=== PATIENT | female | born 1990 | race Caucasian/White ===

== ENCOUNTER 2017-01-26 15:39 | Emergency (ER) | payer MEDICAID ==
[~2017-01-26] VITALS: Ht 157.5 cm; Wt 68.9 kg
[~2017-01-26 15:39] MED LIST: ACIDOPHILUS1 CTB PO; BACTRIM DS 8001 TA1 PO; BACTRIM DS 8001 TAB PO; BACTROBAN2% TP; BENADRYL 25MG C25 MG PO; BENTYL20 MG PO; BENZONATATE100 MG PO; CIPRO 500MG TA500 MG PO; CLARITIN 10MG T10 MG PO; CLINDAMYCIN HC300 MG PO; MEDROL 4MG. DOSE4 MG PO; MONTELUKAST SOD10 MG PO; MOTRIN 600MG.600 MG PO; MOTRIN600 M1 PO; NOMEDS XX; PHENERGAN W/CO473 ML PO; PREDNISONE 10MG10 MG PO; PREDNISONE 20MG20 MG PO; SPRINTEC 35 MCG1 TAB PO; SULFAMETHOXAZOL1 TA6 PO; TESSALON PERLE100 MG PO; TYLENOL ES500 M1 PO; ZITHROMAX 250M250 MG PO; ZITHROMAX Z PA250 MG PO; ZITHROMAX Z-PA250 M1 PO; ZOFRAN4 MG PO; ZYRTEC 10MG TAB10 MG PO; ZYRTEC10 M2 PO
[2017-01-26] MEDS ORDERED: SUDAFED 12HR120 MG PO (16:10)
[2017-01-26] MEDS ORDERED: LEVAQUIN500 MG PO (16:10)
[2017-01-26] MEDS ORDERED: MEDROL 4MG. DOSE4 MG PO (16:10)
--- NOTE | 2017-01-26 16:11 | Urgent Treatment Center Report ---
History of Present Issue Date/Time Seen by Provider 01/26/17 1427 Visit Reason Pt arrived:Walked Presenting Problem:PT STATES HEAD CONGESTION, SINUS PAIN/PRESSURE, AND PRODUCTIVE COUGH WITH YELLOW SPUTUM. STATES TAKING A ZPACK WITH NO IMPROVEMENT Location if Accident: Onset of symptoms date/time:/ or onset unknown for:MEDICAL HX UNKNOWN Have you (or family members/close friends) recently traveled outside the [place]? N If Yes, where/when: Have you had exposure to infectious disease within the past month? TB? Other? Specify: Source patient, RN notes reviewed, family Exam Limitations no limitations Comment 10 day history of sinus pain and pressure, bilateral ear pain, sore throat and cough. Has taken ZPack without relief. States has had fever. No vomiting or diarrhea. ALLERGIES Coded Allergies: Penicillins (09/28/15) Pertussis Vaccines (09/28/15) amoxicillin (09/28/15) cefpodoxime (09/28/15) clavulanic acid (09/28/15) erythromycin base (09/28/15) guaifenesin (09/28/15) Home Medications Reported Medications Montelukast Sodium 10 MG PO QHS #30 NORGESTIMATE-ETHINYL ESTRADIOL (Sprintec 28 Day Tablet) 1 TAB PO QHS #28 History Medical History General CAD? No Angina: No [place]: No Hypertension? Yes Hyperlipidemia? No CHF? No DVT? No PE? No COPD? No Asthma? Yes Anemia? No GERD? No Gastric ulcers? No GI Bleed? No Hernia? No Thyroid Problems? No Hypothyroidism? No CVA? No Seizures? Yes Diabetes? No Insulin Dependent: No Insulin Pump: No Home FSBS? No Renal Insuffiency? No UTI? No Stones? No BPH? No GB Disease: Yes Nephritic Syndrome? No Asplenia? No Hepatitis? No Sickle Cell Disease? No Arthritis? No Migraines? No Cataracts? No Glaucoma? No MRSA? Yes HIV? No TB? No Anxiety? No Depression? No Cancer? No More? 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 Physical Exam Vital Signs Vital Signs Date Time Temp Pulse Resp B/P Pulse O2 O2 Flow FiO2 Ox Delivery Rate 01/26 1600 98.2 98 20 135/97 98 General Appearance normal appearance, no apparent distress Ear, Nose, Throat sinus pain/drainage, pharyngeal erythema Respiratory Status No: respiratory distress, trachea midline, chest symmetrical. Lung Sounds bilateral: normal breath sounds, lungs clear. Cardiovascular normal exam, regular rate/rhythm, no peripheral edema, no gallop, no JVD, no murmur, no rub Extremities non-tender, normal range of motion, normal inspection, normal capillary refill Neurologic alert, normal exam, oriented x 3 Mental status normal mood/affect Medical Decision Making LABS/Meds/Orders Pt receiving controlled substance in ED? No Departure Departure Time of Disposition 1608 Disposition DC Home or Self Care(routine) Clinical Impression Primary Impression: Sinusitis Qualifiers: Sinusitis location: maxillary Chronicity: acute Recurrence: non- recurrent Qualified Code: J01.00 - Acute maxillary sinusitis, unspecified Condition STABLE Referrals HERNANDO APONTE (Family) Patient Instructions DI for Sinusitis Additional Instructions rest, fluids Discharge Counseling Counseled pt/family regarding diagnosis, medications/RX, home care, follow up needs Prescriptions Current Visit Scripts Levofloxacin (Levaquin 500MG) 500 MG PO DAILY #10 TAB Pseudoephedrine Hcl (Sudafed 12 Hour) 120 MG PO BIDP PRN congestion #20 TER Methylprednisolone (Medrol Dose Greg) 4 MG PO UD #1 GREG TAKE DIRECTED ON PACKAGING at 1610
--- NOTE | 2017-01-26 16:11 | Urgent Treatment Center Report ---
History of Present Issue Date/Time Seen by Provider 01/26/17 1857 Visit Reason Pt arrived:Walked Presenting Problem:PT STATES HEAD CONGESTION, SINUS PAIN/PRESSURE, AND PRODUCTIVE COUGH WITH YELLOW SPUTUM. STATES TAKING A ZPACK WITH NO IMPROVEMENT Location if Accident: Onset of symptoms date/time:/ or onset unknown for:MEDICAL HX UNKNOWN Have you (or family members/close friends) recently traveled outside the [place]? N If Yes, where/when: Have you had exposure to infectious disease within the past month? TB? Other? Specify: Source patient, RN notes reviewed, family Exam Limitations no limitations Comment 10 day history of sinus pain and pressure, bilateral ear pain, sore throat and cough. Has taken ZPack without relief. States has had fever. No vomiting or diarrhea. ALLERGIES Coded Allergies: Penicillins (09/28/15) Pertussis Vaccines (09/28/15) amoxicillin (09/28/15) cefpodoxime (09/28/15) clavulanic acid (09/28/15) erythromycin base (09/28/15) guaifenesin (09/28/15) Home Medications Reported Medications Montelukast Sodium 10 MG PO QHS #30 NORGESTIMATE-ETHINYL ESTRADIOL (Sprintec 28 Day Tablet) 1 TAB PO QHS #28 History Medical History General CAD? No Angina: No [place]: No Hypertension? Yes Hyperlipidemia? No CHF? No DVT? No PE? No COPD? No Asthma? Yes Anemia? No GERD? No Gastric ulcers? No GI Bleed? No Hernia? No Thyroid Problems? No Hypothyroidism? No CVA? No Seizures? Yes Diabetes? No Insulin Dependent: No Insulin Pump: No Home FSBS? No Renal Insuffiency? No UTI? No Stones? No BPH? No GB Disease: Yes Nephritic Syndrome? No Asplenia? No Hepatitis? No Sickle Cell Disease? No Arthritis? No Migraines? No Cataracts? No Glaucoma? No MRSA? Yes HIV? No TB? No Anxiety? No Depression? No Cancer? No More? 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 Physical Exam Vital Signs Vital Signs Date Time Temp Pulse Resp B/P Pulse O2 O2 Flow FiO2 Ox Delivery Rate 01/26 1600 98.2 98 20 135/97 98 General Appearance normal appearance, no apparent distress Ear, Nose, Throat sinus pain/drainage, pharyngeal erythema Respiratory Status No: respiratory distress, trachea midline, chest symmetrical. Lung Sounds bilateral: normal breath sounds, lungs clear. Cardiovascular normal exam, regular rate/rhythm, no peripheral edema, no gallop, no JVD, no murmur, no rub Extremities non-tender, normal range of motion, normal inspection, normal capillary refill Neurologic alert, normal exam, oriented x 3 Mental status normal mood/affect Medical Decision Making LABS/Meds/Orders Pt receiving controlled substance in ED? No Departure Departure Time of Disposition 1608 Disposition DC Home or Self Care(routine) Clinical Impression Primary Impression: Sinusitis Qualifiers: Sinusitis location: maxillary Chronicity: acute Recurrence: non- recurrent Qualified Code: J01.00 - Acute maxillary sinusitis, unspecified Condition STABLE Referrals HERNANDO APONTE (Family) Patient Instructions DI for Sinusitis Additional Instructions rest, fluids Discharge Counseling Counseled pt/family regarding diagnosis, medications/RX, home care, follow up needs Prescriptions Current Visit Scripts Levofloxacin (Levaquin 500MG) 500 MG PO DAILY #10 TAB Pseudoephedrine Hcl (Sudafed 12 Hour) 120 MG PO BIDP PRN congestion #20 TER Methylprednisolone (Medrol Dose Greg) 4 MG PO UD #1 GREG TAKE DIRECTED ON PACKAGING at 1610
[2017-01-26 16:22] VITALS: BP 135/97
== END 2017-01-26 16:22 | disposition home or self-care (01) ==
LOC: UTC 15:39
DX: J01.00 Acute maxillary sinusitis, unspecified (principal); I10 Essential (primary) hypertension; Z79.3 Long term (current) use of hormonal contraceptives; Z79.899 Other long term (current) drug therapy

== ENCOUNTER 2017-02-19 13:28 | Emergency (ER) | payer MEDICAID ==
[~2017-02-19] VITALS: Ht 157.5 cm; Wt 77.1 kg
[~2017-02-19 13:28] MED LIST changes: +LEVAQUIN500 MG PO; +SUDAFED 12HR120 MG PO
--- NOTE | 2017-02-19 13:50 | Emergency Room Report ---
History of Present Illness Time Seen by MD Virk Presenting Problem in Triage Pt arrived:Walked Presenting Problem:PT C/O ABD PAIN GOING ACROSS HER STOMACH IN THE UMBILICAL REGION. PT ADVISES THAT IT BEGAN APPROX 30 MINUTES AGO AFTER GOING TO THE BATHROOM AT WORK. 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 N Clinical Suspician of Infection? N Mental Status: 1 - Regular (Normal Baseline) Sepsis Risk:Low Sepsis Risk Have you (or family members/close friends) recently traveled outside the [place]? N If Yes, where/when: Have you had exposure to infectious disease within the past month? N TB? Other? Specify: Comment The patient complains of abdominal pain in the LEFT periumbilical area. She says she has had a dull ache there since awakening at about 8 AM, but the pain became suddenly sharp and severe when she urinated this afternoon. Pain radiates around to the LEFT side of her back. 4 episodes of vomiting. Small amount of diarrhea. Temperature of 99 degrees. Currently on her menses. ALLERGIES Coded Allergies: Penicillins (09/28/15) Pertussis Vaccines (09/28/15) amoxicillin (09/28/15) cefpodoxime (09/28/15) clavulanic acid (09/28/15) erythromycin base (09/28/15) guaifenesin (09/28/15) Home Medications Active Scripts Levofloxacin (Levaquin 500MG) 500 MG PO DAILY #10 TAB Prov: 01/26/17 Pseudoephedrine Hcl (Sudafed 12 Hour) 120 MG PO BIDP PRN congestion #20 TER Prov: 01/26/17 Methylprednisolone (Medrol Dose Yohan) 4 MG PO UD #1 YOHAN Prov: 01/26/17 Reported Medications Montelukast Sodium 10 MG PO QHS #30 NORGESTIMATE-ETHINYL ESTRADIOL (Sprintec 28 Day Tablet) 1 TAB PO QHS #28 History Medical History General CAD? No Angina: No [place]: No Hypertension? Yes Hyperlipidemia? No CHF? No DVT? No PE? No COPD? No Asthma? Yes Anemia? No GERD? No Gastric ulcers? No GI Bleed? No Hernia? No Thyroid Problems? No Hypothyroidism? No CVA? No Seizures? Yes Diabetes? No Insulin Dependent: No Insulin Pump: No Home FSBS? No Renal Insuffiency? No End Stage Renal Disease? No UTI? No Stones? No BPH? No GB Disease: Yes Nephritic Syndrome? No Asplenia? No Hepatitis? No Sickle Cell Disease? No Arthritis? No Migraines? No Cataracts? No Glaucoma? No MRSA? Yes HIV? No TB? No Anxiety? No Depression? No Cancer? No More? 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 Family History Family Hx Diabetes Yes CAD No Hypertension Yes Hyperlipidemia Yes Cancer Yes TB No Social History Smoking Hx Smoker: Never Smoker Tobacco: No Packs/day N/A Alcohol Alcohol: No Review of Systems All Other Systems Reviewed and Negative Constitutional fever Gastrointestinal abdominal pain, diarrhea, nausea, vomiting Musculoskeletal back pain Physical Exam Vital Signs Vital Signs Date Time Temp Pulse Resp B/P Pulse O2 O2 Flow FiO2 Ox Delivery Rate 02/19 1502 97.9 74 16 140/70 99 02/19 1500 16 02/19 1449 16 02/19 1413 82 18 146/88 99 02/19 1331 97.9 84 18 157/93 99 General Appearance no apparent distress Eye Exam - bilateral eye normal exam, bilateral eye PERRL, bilateral eye EOMI Ear, Nose, Throat hearing grossly normal, normal ENT inspection Neck normal inspection, non-tender, supple, full range of motion Respiratory Status Yes: trachea midline, chest symmetrical, non tender chest. No: respiratory distress. Lung Sounds bilateral: normal breath sounds, lungs clear. 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 Yes Ernesto was queried for this patient? No Reason not queried - emergent pt cond=no time Results/Orders Laboratory Tests 02/19/17 1340: Sodium 140, Potassium 3.4 L, Chloride 107, Carbon Dioxide 23, BUN 7, Creatinine 1.1 H, Estimated Creat Clear 96, Estimated GFR (MDRD) 61, Glucose 108 H, Calcium 8.9, Total Bilirubin 0.3, AST 15, ALT 30, Alkaline Phosphatase 78, Total Protein 7.8, Albumin 3.8, Globulin 4.0 H, Albumin/Globulin Ratio 1.0 L, Amylase 43, Lipase 159, WBC 8.3, RBC 4.60, Hgb 13.5, Hct 40.0, MCV 87.0, RDW 12.5, Plt Count 328, MPV 7.8, Gran % 58.4, Gran # 4.9, Lymphocytes % 35.3, Monocytes % 3.5, Eosinophils % 2.4, Basophils % 0.3, Lymphocytes # 3.0, Monocytes # 0.3, Eosinophils # 0.2, Basophils # 0.0, PUBS MCHC 33.6, MCH 29.3, Urine Color ZEE, Urine Appearance SL CLOUDY, Urine pH 5.5, Ur Specific [place] >= 1.030, Urine Protein 2+ H, Urine Ketones NEGATIVE, Urine Blood 3+ H, Urine Nitrate NEGATIVE, Urine Bilirubin 1+ H, Urine Urobilinogen 0.2, Ur Leukocyte Esterase NEGATIVE, Urine RBC 5-10, Urine WBC 5-10, Ur Squamous Epith Cells 5-10, Amorphous Sediment 1+, Urine Bacteria 1+, Urine Glucose NEGATIVE Current Medication Orders Sig/Maryann Start time Last Medication Dose Route Stop Time Status Admin Morphine Sulfate 4 MG ONCE ONE 02/19 1500 DC 02/19 IV 02/19 1501 1500 Ketorolac 30 MG ONCE ONE 02/19 1415 DC 02/19 Tromethamine IV 02/19 1416 1449 Ondansetron HCl 4 MG ONCE ONE 02/19 1345 DC 02/19 IV 02/19 1346 1353 Sodium Chloride 10 ML PRN PRN 02/19 1345 DCD IV 02/20 1336 Sodium Chloride 1,000 ML .Q1H1M 02/19 1345 DC 02/19 IV 02/19 1445 1352 Sodium Chloride 10 ML PRN PRN 02/19 1345 DCD IV 02/20 1337 Orders Procedure Date/time Status DIET-NOTHING BY MOUTH 02/19 D Active GEN NSG/PT REQ (NOT FOR MEDS!) 02/19 1454 Active CULTURE, URINE 02/[address] ABD/PELVIS REQ 02/19 1337 Complete IV SALINE LOCK 02/19 1337 Active URINALYSIS/COMPLETE 02/19 1337 Complete URINE 02/19 1337 Complete LIPASE 02/19 1337 Complete CBC WITH AUTO DIFF 02/19 1337 Complete CHEM 12 PROFILE 02/19 1337 Complete AMYLASE 02/19 1337 Complete XRAY/CT/US XRAY/CT/US CT abdomen, pelvis Comment CT scan interpreted by radiologist: Tiny distal LEFT ureteral calculus with mild hydronephrosis Departure Departure Disposition DC Home or Self Care(routine) Clinical Impression Primary Impression: Left ureteral calculus Condition STABLE Referrals John MARTIN,Lester Vaughan (PCP/Family) Patient Instructions DI for Kidney Stones Additional Instructions Additional instructions for KIDNEY STONE (URETERAL CALCULUS): Strain your urine and save any stones you catch. See your physician as soon as possible for further evaluation. Return immediately if you develop a fever or have uncontrollable vomiting or uncontrollable pain. Prescriptions Current Visit Scripts TAMSULOSIN HCL (Flomax) 0.4 MG PO QHS #10 CAP Ondansetron (Zofran 4MG Odt) 4 MG PO Q8HP PRN NAUSEA AND VOMITING #10 ODT OXYCODONE HCL/ACETAMINOPHEN (Percocet 5-325 MG Tablet) 1 TAB PO Q6HP PRN pain #10 TAB Ibuprofen (Ibuprofen 800MG) 800 MG PO Q8HP PRN pain #15 TAB ED Critical Care Critical Care No at 1510
[2017-02-19 13:54] LABS: HEMOGLOBIN 13.5 g/dL (12.2-16.2); LYMPH % 35.3 % (10-50.0)
[2017-02-19 14:07] LABS: URINE BLOOD 3+ (NEG)
[2017-02-19 14:12] LABS: URINE BILIRUBIN - DIPSTICK 1+ (NEG)
--- NOTE | 2017-02-19 14:46 | RADIOLOGY REPORT PS360 ---
CT ABD PELVIS W/O CONTRAST COMPARISON: CT scan abdomen pelvis 09/06/2014 HISTORY: , Pain left lower quadrant, nausea and vomiting TECHNIQUE: Multiaxial scans obtained from hemidiaphragms the pelvic floor and were performed without IV or oral contrast. Sagittal coronal reformats were evaluated as well. FINDINGS: The lower lung meade are clear. Liver spleen stomach and pancreas appear grossly normal. There has been a previous cholecystectomy. The adrenal glands are normal. The kidneys are normal size. There couple tiny nonobstructing calculi right kidney there are no calculi left kidney however there is moderate hydronephrosis and hydroureter down to the lower pelvis and there is a tiny 1 mm or less calculus in the distal left ureter. The uterus is normal in size and in the midline. The urinary bladder is partially decompressed. There is no free fluid in the pelvis. The small bowel is normal. The appendix is normal and retrocecal in location. There are scattered stool throughout the colon. IMPRESSION: Tiny distal ureteral calculus causing mild obstructive uropathy left kidney, other nonacute findings as described
[2017-02-19] MEDS ORDERED: ZOFRAN ODT4 MG PO (14:55)
[2017-02-19] MEDS ORDERED: IBUPROFEN800 MG PO (14:55)
[2017-02-19] MEDS ORDERED: FLOMAX0.4 MG PO (14:55)
[2017-02-19] MEDS ORDERED: PERCOCET1 TAB PO (14:55)
[2017-02-19 15:02] VITALS: BP 140/70
[2017-02-27] MEDS ORDERED: BACTRIM DS 8001 TA1 PO (17:35)
[2017-02-27] MEDS ORDERED: PYRIDIUM100 M2 PO (17:35)
== END 2017-02-19 15:04 | disposition home or self-care (01) ==
LOC: ER 13:28
PROVIDERS: Emergency Medicine
DX: N13.2 Hydronephrosis with renal and ureteral calculous obstruction (principal); J45.909 Unspecified asthma, uncomplicated; Z88.0 Allergy status to penicillin; Z88.8 Allergy status to other drugs, medicaments and biological substances
CPT/HCPCS: J2405

== ENCOUNTER → 2017-02-27 | Emergency (ER) | payer MEDICAID ==
[~2017-02-27] VITALS: Ht 157.5 cm; Wt 78.5 kg
[~2017-02-27] MED LIST changes: +FLOMAX0.4 MG PO; +IBUPROFEN800 MG PO; +PERCOCET1 TAB PO; +PYRIDIUM100 M2 PO; +ZOFRAN ODT4 MG PO
--- NOTE | 2017-02-27 17:06 | Urgent Treatment Center Report ---
History of Present Issue Date/Time Seen by Provider 02/27/17 1705 Visit Reason Pt arrived:Walked Presenting Problem:PT C/O OF LOWER BACK/ ABDOMINAL PAIN. WAS SEEN IN THE ER ON FRIDAY AND WAS TOLD SHE HAD A SMALL KIDNEY STONE ON THE LEFT. Location if Accident: Onset of symptoms date/time:/ or onset unknown for:MEDICAL HX UNKNOWN Have you (or family members/close friends) recently traveled outside the [place]? N If Yes, where/when: Have you had exposure to infectious disease within the past month? TB? Other? Specify: Patient state that she was recently diagnosed with small kidney stone State that she was sent home and told that she could pass it and given medication. State that has been having pain and burning with urination State that she feels pain in her back and lower abdomen along with frequency and urgency State that she was told that she should be able to pass it easily ALLERGIES Coded Allergies: Penicillins (09/28/15) Pertussis Vaccines (09/28/15) amoxicillin (09/28/15) cefpodoxime (09/28/15) clavulanic acid (09/28/15) erythromycin base (09/28/15) guaifenesin (09/28/15) Home Medications Active Scripts TAMSULOSIN HCL (Flomax) 0.4 MG PO QHS #10 CAP Prov: 02/19/17 Ondansetron (Zofran 4MG Odt) 4 MG PO Q8HP PRN NAUSEA AND VOMITING #10 ODT Prov: 02/19/17 OXYCODONE HCL/ACETAMINOPHEN (Percocet 5-325 MG Tablet) 1 TAB PO Q6HP PRN pain #10 TAB Prov: 02/19/17 Ibuprofen (Ibuprofen 800MG) 800 MG PO Q8HP PRN pain #15 TAB Prov: 02/19/17 Levofloxacin (Levaquin 500MG) 500 MG PO DAILY #10 TAB Prov: 01/26/17 Pseudoephedrine Hcl (Sudafed 12 Hour) 120 MG PO BIDP PRN congestion #20 TER Prov: 01/26/17 Methylprednisolone (Medrol Dose Yohan) 4 MG PO UD #1 YOHAN Prov: 01/26/17 Reported Medications Montelukast Sodium 10 MG PO QHS #30 NORGESTIMATE-ETHINYL ESTRADIOL (Sprintec 28 Day Tablet) 1 TAB PO QHS #28 History Medical History General CAD? No Angina: No [place]: No Hypertension? Yes Hyperlipidemia? No CHF? No DVT? No PE? No COPD? No Asthma? Yes Anemia? No GERD? No Gastric ulcers? No GI Bleed? No Hernia? No Thyroid Problems? No Hypothyroidism? No CVA? No Seizures? Yes Diabetes? No Insulin Dependent: No Insulin Pump: No Home FSBS? No Renal Insuffiency? No UTI? No Stones? No BPH? No GB Disease: Yes Nephritic Syndrome? No Asplenia? No Hepatitis? No Sickle Cell Disease? No Arthritis? No Migraines? No Cataracts? No Glaucoma? No MRSA? Yes HIV? No TB? No Anxiety? No Depression? No Cancer? No More? 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 Physical Exam Vital Signs Vital Signs Date Time Temp Pulse Resp B/P Pulse O2 O2 Flow FiO2 Ox Delivery Rate 02/27 1737 97.9 94 20 141/97 95 02/27 1658 97.9 94 20 141/97 95 General Appearance normal appearance, no apparent distress Respiratory Status Yes: trachea midline, chest symmetrical, non tender chest. No: respiratory distress. Cardiovascular normal exam, regular rate/rhythm Gastrointestinal normal bowel sounds, normal exam, non tender, no guarding, no rebound Neurologic alert, normal exam, oriented x 3 Medical Decision Making LABS/Meds/Orders Pt receiving controlled substance in ED? No Results/Orders Laboratory Tests 02/27/171655: Urine Color YELLOW, Urine Appearance Cloudy, Urine pH 5.5, Ur Specific [place] 1.025, Urine Protein 100, Urine Ketones NEGATIVE, Urine Blood 3+ H, Urine Nitrate NEGATIVE, Urine Bilirubin 1+ H, Urine Urobilinogen 0.2, Ur Leukocyte Esterase 1+ H, Urine Glucose NEGATIVE Orders Procedure Date/time Status [facility] URINE DIPSTICK 02/28 1656 Complete Departure Departure Time of Disposition 173 Disposition DC Home or Self Care(routine) Clinical Impression Primary Impression: UTI (urinary tract infection) Qualifiers: Urinary tract infection type: site unspecified Hematuria presence: with hematuria Qualified Code: N39.0 - Urinary tract infection, site not specified Condition STABLE Referrals John MARTIN,Lester Vaughan (Family) Patient Instructions DI for Urinary Tract Infection (UTI) Additional Instructions *Increase fluids. Water not Soda or Tea *Start antibiotic immediately and be sure to take as ordered for the FULL length of time although you should start to see improvement over the next 48 hours *Pyridium as needed Remember this medication will turn your urine Ellis. This is normal but it will stain what ever it gets on *You should not use Pyridium for more than 48 hours. If so , follow up with your primary physician to review urine culture and ensure that antibiotic is adequate for infection *Be SURE to follow up anytime for new or worsening symptoms. AND in 48 hours for urine culture results AND in 10-14 days to repeat UA to ensure infection is resolved and blood no longer present *Be sure to let your PCP know that we sent urine cultures from the [facility] so they can follow up to ensure that you area the on the correct antibiotic Discharge Counseling Counseled pt/family regarding diagnosis, medications/RX, home care, follow up needs Prescriptions Current Visit Scripts SULFAMETHOXAZOLE W/TRIMETHOPRI (Bactrim Ds Tab) 1 TABLET PO BID #20 TAB Phenazopyridine HCl (Pyridium) 100 MG PO TID #6 TAB at 1254
[2017-02-27 17:14] LABS: URINE BILIRUBIN - DIPSTICK 1+ (NEG)
[2017-02-27 17:15] LABS: URINE BLOOD 3+ (NEG)
--- OUTSIDE RECORDS SUMMARY | 2017-02-27 17:17 | External Medical Summary Rpt | CCD ---
Author Author , SVITLANA Organization SVITLANA Address Unknown Phone [email or web address] Care Team Providers Care Surveillance Supervisor Name Role Phone BESSON BETY, BESSON Unavailable Unavailable BETY COTTER ALL, COTTER ALL Unavailable Unavailable LICONA MAZIN, LICONA Unavailable Unavailable MAZIN KRISTOFER KENIA, Unavailable Unavailable KRISTOFER KENIA SUKHI KELLERAN Unavailable Unavailable EUG JR JESUSITA VASQUEZ, Unavailable Unavailable JR JESUSITA VASQUEZ MINNIE, DANITA Unavailable Unavailable MINNIE [facility] Unavailable Unavailable INC, [facility] Un[facility], [facility], Unavailable Unavailable [facility] Un[facility] Un[facility], [facility] DORSEY NAEEM, DORSEY Unavailable Unavailable NAEEM ISABELLE GRE, Unavailable Unavailable ISABELLE GRE ISABELLE GRE, Unavailable Unavailable ISABELLE GRE [facility], [facility] ALEXANDER, Unavailable Unavailable [facility] Unavailable Unavailable SOTINGEANU OSCAR, Unavailable Unavailable SOTINGEANU OSCAR [facility], [facility] STONE, STONE Unavailable Unavailable STONE ROSLYN, STONE ROSLYN Unavailable Unavailable Purpose Continuity of Care Document - 12-30-2012 through 2016 Problems Code Diagnosis DOS Provider Status Z23 ENCOUNTER 10-11-2016 [facility] IMMUNIZATIO GROUP N R112 NAUSEA WITH 09-09-2016 [facility] VOMITING PHYSICIANS UNSPECIFIED GROUP [id number] PUNCTURE 09-09-2016 [facility] WOUND W/O PHYSICIANS FB RIGHT GROUP FOOT INITIAL ENCNTR I10 ESSENTIAL 04-18-2016 [facility] P N R0789 OTHER CHEST 04-18-2016 [facility] R079 CHEST PAIN 04-18-2016 [facility]NSPECIFIED [facility]IC[facility]ANS[facility] PLLC [id number] ENCOUNTER 04-01-2016 [facility] GENERAL RTN W/O ABNORMAL FIND Z0100 ENCOUNTER 03-13-2016 IS[facility] EXAM EYES & GRE VISION W/O ABNORMAL FIND J320 CHRONIC 12-18-2015 [facility] MAXILLARY PHYSICIANS SINUSITIS GROUP J342 DEVIATED 12-18-2015 [facility] NASAL PHYSICIANS SEPTUM GROUP J322 CHRONIC 12-04-2015 [facility] ETHMOIDAL PHYSICIANS SINUSITIS GROUP H547 UNSPECIFIED 11-18-2015 [facility] VISUAL [facility]ICAL LOSS [facility] J324 CHRONIC 11-18-2015 [facility] PANSINUSITI PHYSICIANS, S PLLC J3489 OTHER 11-18-2015 [facility] SPECIFIED MEDICAL DISORDERS IMAGING ASS NOSE AND NASAL SINUSES R05 COUGH 11-18-2015 [facility] R51 HEADACHE 11-18-2015 [facility] Z880 ALLERGY 11-18-2015 [facility] STATUS TO PHYSICIANS, PENICILLIN PLLC Z881 ALLERGY 11-18-2015 [facility] STATUS TO PHYSICIANS, OTHER PLLC ANTIBIOTIC AGENTS STATUS Z887 ALLERGY 11-18-2015 [facility] STATUS TO PHYSICIANS, SERUM AND PLLC VACCINE STATUS Z888 ALLERGY 11-18-2015 [facility] STATUS OTH PHYSICIANS, RX MEDS & PLLC BIOLOG SUBSTANC STS [id number] INSECT BITE 09-28-2015 [facility] LOWER BACK PHYSICIANS, & PELVIS PLLC INITIAL ENC F01703N INSECT BITE 09-28-2015 [facility] LEFT HIP PHYSICIANS, INITIAL PLLC ENCOUNTER [id number] TOXIC 09-28-2015 [facility]FFECT UNS [facility] VENOM ACC INITIAL ENC R000 TACHYCARDIA 02-23-2015 [facility], UNSPECIFIED PLLC R0602 SHORTNESS 02-23-2015 [facility] 4019 UNSPECIFIED 02-03-2015 [facility] P N 26710 ASTHMA, 02-03-2015 [facility] UNSPECIFIED STATUS 7231 CERVICALGIA 02-03-2015 [facility] 7851 PALPITATION 02-03-2015 [facility] S PHYSICIANS, PLLC 68630 CHEST PAIN 02-03-2015 [facility] UNSPECIFIED PHYSICIANS, PLLC 55637 OTHER 01-02-2015 [facility] MALAISE AND PHYSICIANS FATIGUE GROUP 7831 ABNORMAL 01-02-2015 [facility] WEIGHT GAIN PHYSICIANS GROUP 7862 COUGH 12-04-2014 [facility] 4659 ACUTE URIS 12-03-2014 [facility] OF PHYSICIANS, UNSPECIFIED PLLC SITE 05209 UNSPECIFIED 10-24-2014 [facility] VIRAL PHYSICIANS INFECTION GROUP IN CCE & UNS SITE 4738 OTHER 10-24-2014 [facility] CHRONIC [facility]ICAL SINUSITIS [facility]AGING ASS 4739 UNSPECIFIED 10-24-2014 [facility] SINUSITIS PHYSICIANS GROUP 7840 HEADACHE 10-24-2014 [facility] 4618 OTHER ACUTE 10-23-2014 [facility] SINUSITIS [facility] 14046 OTHER 10-23-2014 [facility] CONVULSIONS [facility] 4610 ACUTE 10-14-2014 [facility] MAXILLARY [facility] SINUSITIS INC 4730 CHRONIC 10-14-2014 [facility] MAXILLARY PHYSICIANS, SINUSITIS [facility] 77807 FEVER 10-14-2014 [facility] UNSPECIFIED [facility]ICAL [facility]ING ASS 7869 OTH 10-14-2014 [facility] SYMPTOMS MEDICAL INVOLVING IMAGING ASS RESPIRATORY SYSTEM&CHES T 9115 TRUNK 10-14-2014 [facility] INSECT BITE [facility] INC NONVENOMOUS INFECTED 6253 DYSMENORRHE 10-13-2014 [facility] A PHYSICIANS GROUP 6262 EXCESSIVE 10-13-2014 [facility] OR FREQUENT PHYSICIANS GROUP MENSTRUATIO N 6264 IRREGULAR 10-13-2014 [facility] MENSTRUAL PHYSICIANS CYCLE GROUP 10694 ABDOMINAL 09-06-2014 [facility] PAIN RIGHT MEDICAL UPPER IMAGING ASS QUADRANT 7821 RASH AND 08-24-2014 [facility] OTHER [facility] NONSPECIFIC INC SKIN ERUPTION 57733 ABDOMINAL 08-24-2014 [facility] PAIN, [facility] UNSPECIFIED INC SITE 29948 ACUTE 05-07-2014 [facility] SEROUS PHYSICIANS OTITIS GROUP MEDIA 4619 ACUTE 05-07-2014 [facility] SINUSITIS, PHYSICIANS UNSPECIFIED GROUP 71393 HEMOPTYSIS 03-15-2014 [facility] UNSPEC[facility]IED N EMERGENCY PHYSI V140 PERSONAL 03-15-2014 [facility] HISTORY OF [facility] ALLERGY TO INC PENICILLIN V148 PERSONAL 03-15-2014 [facility] HISTORY [facility] ALLERGY OTH INC SPEC MEDICINAL AGTS 4660 ACUTE 03-14-2014 [facility] BRONCHITIS [facility] 490 BRONCHITIS 03-14-2014 [facility] NOT N EMERGENCY SPECIFIED PHYSI ACUTE OR CHRONIC 5110 PLEURISY 03-14-2014 [facility] WITHOUT N EMERGENCY MENTION PHYSI EFFUS/CURRE NT TB V1501 PERSONAL 03-14-2014 [facility] ALLERGY TO INC PEANUTS 08563 PAINFUL 03-09-2014 [facility] RESPIRATION N EMERGENCY PHYSI Allergies, Adverse Reactions, Alerts Type Allergy to substance Drug Allergy Adverse Reaction to Substance Substance Reaction Severity PERTUSIS SEIZURES Unknown Penicillin I-RASH Unknown Cephalexin I-RASH Unknown Erythromycin I-RASH Unknown Amoxicillin I-RASH Unknown Cefpodoxime I-RASH Unknown Clavulanic Acid I-RASH Unknown Medications Na ND Rx Da Fi Fi Am Da Di Ph RX Ph St me C No te ll ll ou ys ag ar # ys at rm s nt no ma ic us Or Da si cy ia de te s n re d LE 68 09 10 10 10 00 MI Ac VO 38 -1 -1 .0 00 L- ti FL 20 7- 3- 00 07 MA ve OX 01 20 20 51 RT AC 60 17 17 00 IN 1 97 PH AR 50 MA 0 CY MG #5 TA 91 BL ET ME 59 09 10 21 6 00 MI Ac TH 74 -1 -1 .0 00 L- ti YL 60 7- 3- 00 07 MA ve ID 00 20 20 51 RT ED 10 17 17 00 NI 3 98 PH SO AR LO MA NE CY 4 #5 MG 91 DO SE PK AZ 50 09 10 6. 5 00 MI Ac IT 11 -1 -1 00 00 L- ti HR 10 2- 3- 0 07 MA ve OM 78 20 20 50 RT YC 75 17 17 92 IN 1 69 PH AR 25 MA 0 CY MG #5 TA 91 BL ET MO 31 05 06 30 30 00 MI Ac NT 72 -2 -2 .0 00 L- ti EL 20 4- 3- 00 07 MA ve UK 72 20 20 48 RT 61 17 17 98 T 0 22 PH SO AR D MA 10 CY MG #5 91 TA BL ET ES 68 05 06 30 30 00 MI Ac CI 64 -2 -2 .0 00 L- ti TA 50 3- 3- 00 07 MA ve LO 52 20 20 48 RT ID 05 17 17 96 AM 4 28 PH AR 20 MA CY MG #5 TA 91 BL ET CI 00 05 06 10 5 00 WA Ac ID 17 -0 -0 .0 00 L- ti OF 25 1- 2- 00 07 MA ve LO 31 20 20 48 RT XA 26 17 17 53 CI 0 81 PH N AR HC MA L CY 50 0 #5 MG 91 TA B ON 57 05 06 24 8 00 MI Ac DA 23 -0 -0 .0 00 L- ti NS 70 1- 2- 00 07 MA ve ET 07 20 20 48 RT RO 81 17 17 53 N 0 83 PH OD AR T MA 8 CY MG #5 TA 91 BL ET IB 68 03 04 12 3 00 WA Ac UP 64 -3 -2 .0 00 L- ti RO 50 0- 1- 00 07 MA ve FE 53 20 20 47 RT N 05 17 17 96 60 9 71 PH 0 AR MG MA CY TA BL #5 ET 91 ES 68 03 03 30 30 00 WA Ac CI 64 -1 -3 .0 00 L- ti TA 50 0- 1- 00 07 MA ve LO 51 20 20 46 RT ID 95 17 17 11 AM 4 74 PH AR 10 MA CY MG #5 TA 91 BL ET ME 59 03 03 21 6 00 WA Ac TH 74 -0 -3 .0 00 L- ti YL 60 9- 1- 00 07 MA ve ID 00 20 20 47 RT ED 10 17 17 54 NI 3 77 PH SO AR LO MA NE CY 4 #5 MG 91 DO SE PK MO 54 03 03 30 30 00 WA Ac NT 45 -1 -3 .0 00 L- ti EL 80 0- 1- 00 07 MA ve UK 89 20 20 44 RT 01 17 17 04 T 0 71 PH SO AR D MA 10 CY MG #5 91 TA BL ET AZ 59 03 03 6. 5 00 WA Ac IT 76 -0 -3 00 00 L- ti HR 23 9- 1- 0 07 MA ve OM 06 20 20 47 RT YC 00 17 17 54 IN 1 76 PH AR 25 MA 0 CY MG #5 TA 91 BL ET ES 65 01 02 30 30 00 WA Ac CI 86 -2 -1 .0 00 L- ti TA 20 7- 7- 00 07 MA ve LO 37 20 20 46 RT ID 40 17 17 11 AM 1 74 PH AR 10 MA CY MG #5 TA 91 BL ET ES 68 12 01 30 30 00 WA Ac CI 64 -2 -2 .0 00 L- ti TA 50 8- 0- 00 07 MA ve LO 44 20 20 46 RT ID 87 16 17 11 AM 0 74 PH AR 10 MA CY MG #5 TA 91 BL ET Ib 62 09 0 No up 58 -1 ro 40 2- Lo fe 74 20 ng n 60 13 er 40 1 0M Ac G ti Ta ve bl et Immunization Name Date Rout CVX Reac Dose Comm Prov Is Faci e tion ent ider Refu lity Give sed n 4VHP 01- 62 STON No [facility] V 8-20 E PHYS VACC 17 ICIA INE NS 3 GROU DOSE P SCHE DULE FOR IM USE 4VHP 11-0 62 STON No [facility]H V 8-20 E PHYS VACC 16 ROSLYN ICIA INE NS 3 GROU DOSE P SCHE DULE FOR IM USE Vital Signs 01-21-2013 13:47 Name Value Interpretat Reference Comment ion Range Body 98.5 [degF] Temperature BP 73 mm[Hg] Diastolic BP Systolic 133 mm[Hg] Heart 75 /min Rate/Pulse O2% 98 % Respiratory 16 /min Rate 01-21-2013 13:30 Name Value Interpretat Reference Comment ion Range BP 75 mm[Hg] Diastolic BP Systolic 130 mm[Hg] Heart 65 /min Rate/Pulse O2% 98 % Respiratory 17 /min Rate 12-30-2012 18:04 Name Value Interpretat Reference Comment ion Range Body 98.1 [degF] Temperature BP 93 mm[Hg] Diastolic BP Systolic 159 mm[Hg] Heart 97 /min Rate/Pulse O2% 97 % Respiratory 18 /min Rate 12-30-2012 17:33 Name Value Interpretat Reference Comment ion Range BP 81 mm[Hg] Diastolic BP Systolic 129 mm[Hg] Heart 117 /min Rate/Pulse O2% 100 % Respiratory 18 /min Rate Results Labs Lab Lab Date Result Refere Interp Status Commen Order Detail nces retati t Range on Urinalysis with microscopy (02-19-2017 13:40) Urine SL CLEAR complet appeara 017 CLOUDY ed nce 13:40 SL determi CLOUDY nation L Urine 0.2 0.2 NEG complet urobili 017 L ed nogen 13:40 E.U./dL detecti on by test str Urine > = 1.005-1 complet specifi 017 1.030 .030 ed c 13:40 gravity measure ment Urine 2 + NEG complet protein 017 mg/dL ed 13:40 measure ment by automat ed t Urine = 5.5 5.0-8.5 complet pH 017 ed 13:40 Urine NEGATIV NEG complet nitrite 017 E ed 13:40 NEGATIV detecti E L on by test strip Mucus NEGATIV NEG complet detecti 017 E ed on in 13:40 NEGATIV urine E L sedimen t by lig Urine NEGATIV NEG complet ketones 017 E ed 13:40 NEGATIV detecti E L on by mg/dL automat ed keyona Glucose = NEG complet ur 017 NEGATIV ed test 13:40 E strip Urine ZEE YELLOW complet color 017 ZEE L ed 13:40 Urine 3+ 3+ L NEG complet blood 017 ed detecti 13:40 on Urine 1+ 1+ L NEG complet total 017 ed bilirub 13:40 in detecti on by test Comment: BILIRUBIN CONFIRMED WITH ICTOTEST Comment: ICTOTEST NEGATIVE Urine test (02-19-2017 13:40) Urine = NEG complet pregnan 017 NEGATIV ed cy test 13:40 E Lipase measurement (02-19-2017 13:40) Lipase = 159 73-393 complet measure 017 U/L ed ment 13:40 CBC w auto diff (02-19-2017 13:40) Automat = 2.4 % 0.1-12. complet ed 017 0 ed blood 13:40 eosinop hils/10 0 leukocy t Automat = 0.2 0.0-0.4 complet ed 017 K/mm3 ed blood 13:40 eosinop hil count Baso % = 0.3 % 0.1-2.0 complet 017 ed 13:40 Automat = 0.0 0-0.2 complet ed 017 K/MM3 ed blood 13:40 basophi l count (count/ vo Blood = 8.3 4.8-10. complet leukocy 017 K/MM3 8 ed keyona 13:40 count (number /volume ) Automat = 12.5 11.5-17 complet ed 017 % .5 ed erythro 13:40 cyte distrib ution width Red = 4.60 4.2-5.4 complet blood 017 M/mm3 ed cell 13:40 count Blood = 328 142-424 complet platele 017 K/mm3 ed t count 13:40 Automat = 7.8 7.4-10. complet ed 017 fl 4 ed blood 13:40 platele t mean volume jaren Crittenden % = 3.5 % 1.7-9.3 complet 017 ed 13:40 Absolut = 0.3 0.1-1.0 complet e 017 K/mm3 ed monocyt 13:40 e count Automat = 87.0 82.2-97 complet ed 017 fl .8 ed erythro 13:40 cyte mean corpusc ular v Automat = 33.6 31.8-35 complet ed 017 g/dl .4 ed erythro 13:40 cyte mean corpusc ular h Mean = 29.3 27-31.2 complet corpusc 017 pg ed ular 13:40 hemoglo bin (MCH) determ Lymphoc = 35.3 10-50.0 complet yte 017 % ed count, 13:40 blood, automat ed Absolut = 3.0 0.7-4.5 complet e 017 K/mm3 ed lymphoc 13:40 yte count Blood = 13.5 12.2-16 complet hemoglo 017 g/dL .2 ed bin 13:40 measure ment (mass/v olum Blood = 40.0 37.0-47 complet hematoc 017 % .0 ed rit 13:40 (volume fractio n) Granulo = 58.4 37.0-80 complet cyte 017 % .0 ed percent 13:40 age Blood = 4.9 1.8-7.8 complet granulo 017 K/mm3 ed cytes 13:40 automat ed count (numb Comprehensive metabolic panel (02-19-2017 13:40) Serum = 1.0 1.1-1.8 complet or 017 ed plasma 13:40 albumin /globul in mass ra Protein = 7.8 6.4-8.2 complet total 017 gm/dL ed ser/misty 13:40 s ALT = 30 12-78 complet (SGPT) 017 U/L ed ser/misty 13:40 s Serum = 15 15-37 complet or 017 U/L ed plasma 13:40 asparta te aminotr ansfera Serum = 140 136-145 complet sodium 017 mmoL/L ed measure 13:40 ment Serum = 3.4 3.5-5.1 complet potassi 017 mmoL/L ed um 13:40 measure ment Serum = 108 74-106 complet or 017 mg/dL ed plasma 13:40 glucose measure ment (mas Serum = 4.0 1.3-3.2 complet globuli 017 gm/dL ed n 13:40 measure ment (mass/v olume) Estimat = 61 59- complet ed 017 ML/MIN ed glomeru 13:40 lar filtrat ion rate (GF Comment: REFERENCE RANGE: >60 ML/MIN/1.73 SQUARE METERS Comment: If this patient is -[place] Citizen, then multiply the Comment: result by 1.210. Estimat = 96 50-200 complet ion of 017 ML/MIN ed creatin 13:40 ine renal clearan ce Serum = 1.1 0.55-1. complet or 017 mg/dL 02 ed plasma 13:40 creatin ine measure ment ( Carbon = 23 21.0-32 complet dioxide 017 mmoL/L .0 ed 13:40 measure ment Serum = 107 98-107 complet or 017 mmoL/L ed plasma 13:40 chlorid e measure ment (mo Serum = 8.9 8.5-10. complet or 017 mg/dL 1 ed plasma 13:40 calcium measure ment (mas Serum = 7 7-18 complet or 017 mg/dL ed plasma 13:40 urea nitroge n measure men Serum = 0.3 0.2-1.0 complet or 017 mg/dL ed plasma 13:40 total bilirub in measure m Serum = 78 46-116 complet or 017 U/L ed plasma 13:40 alkalin e phospha tase jaren Serum = 3.8 3.4-5.0 complet or 017 gm/dL ed plasma 13:40 albumin measure ment (mas Amylase ser/plas (02-19-2017 13:40) Amylase = 43 25-115 complet 017 U/L ed ser/misyt 13:40 s Procedures Procedure DOS Code Location Performer Comment 4VHPV 31989 [facility] STONE VACCINE 3 7 PHYSICIAN DOSE S GROUP SCHEDULE FOR IM USE IM ADM 63897 [facility] STONE PRQ ID 7 PHYSICIAN SUBQ/IM S GROUP NJXS 1 VACCINE ECG 47576 [facility] CHAHAL ROUTINE 6 [facility] W/LEAST P 12 LDS I&R ONLY RADIOLOGI 65482 [facility] C EXAM 6 MEDICAL CHEST 2 IMAGING VIEWS ASS FRONTAL&L ATERAL CYTP C/V 70471 [facility], PICKLESIM AUTO THIN 6 LLC ER JR LYR PREPJ SCR MNL RESCR PHYS URNLS DIP 79266 [facility] LICONA 6 PHYSICIAN MAZIN STICK/TAB S GROUP LET RGNT NON-AUTO W/O MICRSCP IM ADM 31428 [facility] STONE ROSLYN PRQ ID 6 PHYSICIAN SUBQ/IM S GROUP NJXS 1 VACCINE 4VHPV 82846 [facility] STONE ROSLYN VACCINE 3 6 PHYSICIAN DOSE S GROUP SCHEDULE FOR IM USE OPHTH 588[address] [facility] 6 GRE GRE XM&EVAL COMPRHNSV ESTAB PT 1/> DETERMINA 13262 [facility] TION [address] [place] [address] [facility]ST[facility] HEAD/BRAI 6 MEDICAL [place] N W/O IMAGING CONTRAST ASS MATERIAL RADIOLOGI 62333 [facility] C EXAM 6 MEDICAL [place] CHEST 2 IMAGING VIEWS ASS FRONTAL&[place] [address] [facility] MAXILLOFA 6 MEDICAL [place] CIAL W/[place] [address] [facility] TROPONIN 6 [facility] QUANTITAT INC INC ALEJANDRO BLOOD 33472 [facility] COUNT 6 [facility] COMPLETE INC INC AUTO&AUTO DIFRNTL WBC COMPREHEN 00782 [facility] SIVE 6 [facility] METABOLIC INC INC PANEL CREATINE 93531 [facility] KINASE MB 6 [facility] FRACTION INC INC ONLY CREATINE 19877 [facility] W[facility] KINASE 6 [facility] TOTAL INC INC ECG 85615 [facility] ROUTINE 6 [facility] ECG INC INC W/LEAST 12 LDS TRCG ONLY W/O I&R RADIOLOGI 31509 [facility] C 5 MEDICAL EXAMINATI IMAGING ON CHEST ASS SINGLE VIEW FRONTAL CT THORAX 99096 [facility] ALL 5 MEDICAL W/CONTRAS IMAGING T ASS MATERIAL XTRNL ECG 21279 [facility] & 48 HR 5 [facility] RECORDING INC INC BLOOD 91236 [facility] COUNT 5 [facility] COMPLETE INC INC AUTO&[place] [address] [facility] TROPONIN 5 [facility] QUANTITAT INC INC ALEJANDRO CREATINE 35842 [facility] KINASE 5 [facility] TOTAL INC INC EXTERNAL 26946 [facility] ECG 5 [facility] SCANNING INC INC ANALYSIS REPORT BASIC 48006 [facility] METABOLIC 5 [facility] PANEL INC INC CALCIUM TOTAL CREATINE 70957 [facility] KINASE MB 5 [facility] FRACTION INC INC ONLY XTRNL ECG 48763 [facility] CHAHAL 5 [facility] S RHYTHM P W/I&R UP TO 48 HRS ECG 34664 [facility] ROUTINE 5 [facility] ECG INC INC W/LEAST 12 LDS TRCG ONLY W/O I&R RADIOLOGI 04574 [facility] C EXAM 5 [facility] CHEST 2 INC INC VIEWS FRONTAL&L ATERAL ECG 87040 [facility] CHAHAL ROUTINE 5 [facility] W/LEAST P 12 LDS I&R ONLY MICROSOMA 46995 [facility] L 5 [facility] ANTIBODIE INC INC S EACH COLLECTIO 79407 [facility] DANITA N VENOUS 5 PHYSICIAN MINNIE B[place] [address] [facility]EL[facility] FREE 5 [facility] [place] [address] [facility] THYROID 5 [facility] STIMULATI INC INC NG HORMONE TSH COMPREHEN 62772 [facility] SIVE 5 [facility] METABOLIC INC INC PANEL RADIOLOGI 15219 [facility] WEL[facility] C EXAM 5 [facility] CHEST 2 INC INC VIEWS FRONTAL&L ATERAL URNLS DIP 83049 [facility]ELCH 5 [facility] STICK/TAB INC INC LET REAGENT AUTO MICROSCOP Y URNLS DIP 62100 [facility]ELCH 5 [facility] STICK/TAB INC INC LET REAGENT AUTO MICROSCOP Y BLOOD 09102 [facility] COUNT 5 [facility] COMPLETE INC INC AUTO&[place] [address] [facility] INFUSION 5 [facility] THERAPY/P INC INC ROPHYLAXI S /DX 1ST TO 1 HR URINE 63379 [facility]ELCH 5 [facility] TEST INC INC VISUAL COLOR CMPRSN METHS COMPREHEN 69479 [facility] SIVE 5 [facility] [place] [address] [facility] INFUSION 5 [facility] THERAPY INC INC PROPHYLAX IS/DX EA HOUR THERAPEUT 55573 [facility] W[facility] IC 5 [facility] INJECTION [place] [address] [facility] W[facility] HEAD/BRAI 5 [facility] N W/O INC INC CONTRAST MATERIAL THERAPEUT 01425 [facility] IC 5 [facility] PROPHYLAC INC INC TIC/DX INJECTION SUBQ/IM URINE 86732 [facility] WELCH 5 [facility] TEST INC INC VISUAL COLOR CMPRSN METHS CULTURE 58205 [facility] WEL[facility] BACTERIAL 5 [facility] BLOOD INC INC AEROBIC W/ID ISOLATES BLOOD 44312 [facility] COUNT 5 [facility] COMPLETE INC INC AUTO&AUTO DIFRNTL WBC RADEX 53716 [facility] SINUSES 5 [facility] PARANASAL INC INC COMPL MINIMUM 3 VIEWS RADIOLOGI 44286 RE[facility] WELCH C EXAM 5 [facility] CHEST 2 INC INC VIEWS FRONTAL&[place] [address] RE[facility]EL[facility] INFUSION 5 [facility] THERAPY/P INC INC ROPHYLAXI S /DX 1ST TO 1 HR URINE 03871 RE[facility] WELCH 5 [facility] TEST INC INC VISUAL COLOR CMPRSN METHS BLOOD 87678 [facility]EL[facility] COUNT 5 [facility] COMPLETE INC INC AUTO&AUTO DIFRNTL WBC URNLS DIP 73234 [facility] LAYON 5 [facility] STICK/TAB INC [place] [address] [facility] ABDOMEN & 5 MEDICAL [place] PELVIS IMAGING W/[place] [address] [facility] W[facility] LIPASE 5 [facility] INC INC COMPREHEN 29837 [facility] WEL[facility] SIVE 5 [facility] [place] [address] [facility]EL[facility] AMYLASE 5 [facility] INC INC COMPREHEN 55393 [facility] SIVE 5 [facility] METABOLIC INC INC PANEL COLLECTIO 10380 [facility] N VENOUS 5 PHYSICIAN MINNIE BLOOD S GROUP VENIPUNCT URE URNLS DIP 25432 [facility] DANITA 5 PHYSICIAN MINNIE STICK/TAB S GROUP LET RGNT NON-AUTO W/O MICRSCP BLOOD 85162 [facility] WEL[facility] COUNT 5 [facility] COMPLETE INC INC AUTO&AUTO DIFRNTL WBC URNLS DIP 15449 [facility] STICK/TAB INC INC LET REAGENT AUTO MICROSCOP Y IAADIADOO 87156 [facility] FRYMAN 4 PHYSICIAN EUG INFLUENZA S GROUP CT THORAX 65622 RE[facility] WEL[facility] W/O 4 [facility] CONTRAST INC INC MATERIAL BLOOD 92790 [facility] COUNT 4 [facility] COMPLETE INC INC AUTO&AUTO DIFRNTL WBC THER 38249 REBEKAH WEL[facility] PROPH/DX 4 [facility] NJX IV INC INC PUSH SINGLE/1S T SBST/DRUG COMPREHEN 70867 [facility] SIVE 4 [facility] METABOLIC INC INC PANEL FIBRIN 98867 [facility] DGRADJ 4 [facility] PRODUCTS INC INC D-DIMER QUAL/SEMI JACY IAADI 76163 [facility] INFLUENZA 4 [facility] B VIRUS INC INC IAADI 18469 [facility] INFFLUENZ 4 [facility] A A VIRUS INC INC RADIOLOGI 24524 [facility]EL[facility] C EXAM 4 [facility] CHEST 2 INC INC VIEWS FRONTAL&L ATERAL IAADI 97765 RE[facility] WEL[facility] INFFLUENZ 4 [facility] A A VIRUS INC INC IAADI 26099 [facility] INFLUENZA 4 [facility] B VIRUS INC INC CUL BACT 78120 [facility] XCPT 4 [facility] URINE INC INC BLOOD/[place] [address] [facility] WEL[facility] STREPTOCO 4 [facility] CCUS INC INC GROUP A Encounters Encounter Start End Date Code Location Performer Type Date OFFICE 81329 [facility] OUTPATIEN 7 7 PHYSICIAN T VISIT 5 S GROUP MINUTES OFFICE 79071 [facility] STONE OUTPATIEN 7 7 PHYSICIAN T VISIT S GROUP 15 MINUTES EMERGENCY 26040 JOSE SAMAYOA DEPT 6 6 PHYSICIAN MINNIE VISIT S, PLLC HIGH SEVERITY& THREAT FUNJ PERIODIC 33858 [facility] LICONA PREVENTIV 6 6 PHYSICIAN MAZIN E MED EST S GROUP PATIENT 18-39 YRS OFFICE 36542 [facility] DORSEY OUTPATIEN 6 6 PHYSICIAN NAEEM T VISIT S GROUP 10 MINUTES OFFICE 75101 [facility] DORSEY OUTPATIEN 6 6 PHYSICIAN NAEEM T NEW 10 S GROUP MINUTES [facility]OSPITAL [facility] - 6 6 [facility] OUTPATI[facility] INC T EMERGENCY 30220 [facility] 6 [facility] SE[facility]ITY [facility] - 6 6 [facility] OUT[facility] INC T EMERGENCY 77365 [facility] 6 6 [facility] V[facility]/M INOR PROB EMERGENCY 26934 JOSE SAMAYOA DEPT 5 5 PHYSICIAN MINNIE VISIT S, [facility] HIGH SEVERITY& THREAT FUNCJ EMERGENCY 08049 RE[facility] 5 5 [facility] HIGH/URGE NT SEVERITY EMERGENCY 44544 JOSE SCHWARZEY DEPT 5 5 PHYSICIAN MINNIE VISIT S, [facility] HIGH SEVERITY& THREAT FUNJ HOSPITAL RE[facility] - 5 5 [facility] OUTPATIEN [facility] T OFFICE 86747 [facility] PHYSICIAN MINNIE T VISIT S GROUP 15 MINUTES HOSPITAL REBEK[facility] - 5 5 [facility] OUTPATIEN [facility] T EMERGENCY 04690 [facility] 5 5 [facility] [facility] T VISIT LOW/MODER SEVERITY EMERGENCY 68937 JOSE DOWD 5 5 PHYSICIAN Hannah [facility] S, [facility] T VISIT HIGH/URGE NT SEVERITY HOSPITAL REBEKAH - 5 5 [facility] OUTPATIEN [facility] T OFFICE 81226 [facility] 5 5 PHYSICIAN MINNIE T VISIT S GROUP 15 MINUTES HOSPITAL REBEKAH - 5 5 [facility] OUTPATIEN [facility] T EMERGENCY 27732 JOSE BLOCK [facility] DEPT 5 5 PHYSICIAN VISIT S, [facility] HIGH SEVERITY& THREAT FUNCJ EMERGENCY 12595 RE[facility] 5 5 [facility] T VISIT HIGH/URGE NT SEVERITY EMERGENCY 21506 [facility] 5 5 [facility] T VISIT LOW/MODER SEVERITY EMERGENCY 21028 JOSE VASQUEZ 5 5 PHYSICIAN [facility]ISIT HIGH/URGE NT SEVERITY HOSPITAL RE[facility] - 5 5 [facility] INC T EMERGENCY 07347 RE[facility] 5 5 [facility] DEPARTMEN INC T VISIT LOW/MODER SEVERITY OFFICE 50471 [facility] OUTPATIEN 5 5 PHYSICIAN MAZIN T VISIT S GROUP 15 MINUTES EMERGENCY 50362 REBEKAH 5 5 [facility] T VISIT P MODERATE SEVERITY HOSPITAL REBEKAH - 5 5 [facility] OUTPATIEN INC T HOSPITAL REBEKAH - 5 5 [facility] OUTPATIEN [facility] T OFFICE 44573 [facility] DANITA OUTPATIEN 5 5 PHYSICIAN MINNIE T VISIT S GROUP 25 MINUTES EMERGENCY 24750 REBEKAH 5 5 [facility] T VISIT LOW/MODER SEVERITY HOSPITAL REBEKAH - 5 5 [facility] OUTPATIEN [facility] T OFFICE 26754 [facility] EDYTA OUTPATIEN 4 4 PHYSICIAN EUG T VISIT S GROUP 15 MINUTES EMERGENCY 07973 REBEKAH 4 4 [facility] DEPARTMEN INC T VISIT HIGH/URGE NT SEVERITY EMERGENCY 22296 [facility] DEPT 4 4 SELWYN MINNIE VISIT EMERGENCY HIGH PHYSI SEVERITY& THREAT [facility] REBEK[facility] - 4 4 [facility] OUTPATIEN INC T EMERGENCY 25454 REBEKAH 4 4 [facility] DEPARTMEN INC T VISIT LOW/MODER SEVERITY HOSPITAL REBEKAH - 4 4 [facility] OUTPATIEN INC T EMERGENCY 37070 [facility] 4 4 SELWYN MINNIE DEPARTMEN EMERGENCY T VISIT PHYSI MODERATE SEVERITY EMERGENCY 54395 [facility] 4 4 SELWYN MINNIE DEPARTMEN EMERGENCY T VISIT PHYSI HIGH/URGE NT SEVERITY EMERGENCY 85605 RE[facility] 4 4 [facility] DEPARTMEN INC T VISIT LOW/MODER SEVERITY HOSPITAL REBEKAH - 4 4 [facility] NICK Stallings (ER) 3 13:14 3 13:48 [facility] Theron Paul Emergency NICK Stallings (ER) 3 16:48 3 18:06 [facility] Theron Paul
--- OUTSIDE RECORDS SUMMARY | 2017-02-27 17:17 | External Medical Summary Rpt | CCD ---
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 Name Role Phone BESSON BETY, BESSON Unavailable Unavailable BETY COTTER ALL, COTTER ALL Unavailable Unavailable LICONA MAZIN, ILCONA Unavailable Unavailable MAZIN KRISTOFER KENIA, Unavailable Unavailable KRISTOFER KENIA SUKHI KELLERAN Unavailable Unavailable EUG JR JESUSITA VASQUEZ, Unavailable Unavailable JR JESUSITA VASQUEZ MINNIE, DANITA Unavailable Unavailable MINNIE [facility] Un[facility] Unavailable INC, [facility] Unavailable Unavailable HOSPITAL P, [facility] P [facility], Unavailable Unavailable [facility] Un[facility] Un[facility], [facility] DORSEY NAEEM, DORSEY Unavailable Unavailable NAEEM ISABELLE GRE, Unavailable Unavailable ISABELLE GRE ISABELLE GRE, Unavailable Unavailable ISABELLE GRE [facility] Unavailable [facility]available [facility], [facility] ELMER ALEXANDER, Unavailable Unavailable [facility] Unavailable Unavailable SOTINGEANU OSCAR, Unavailable Unavailable SOTINGEANU OSCAR [facility], [facility] STONE, STONE Unavailable Unavailable STONE ROSLYN, STONE ROSLYN Unavailable Unavailable Purpose Continuity of Care Document - 12-30-2012 through 2016 Problems Code Diagnosis DOS Provider Status Z23 ENCOUNTER 10-11-2016 [facility] IMMUNIZATIO GROUP N R112 NAUSEA WITH 09-09-2016 [facility] VOMITING PHYSICIANS UNSPECIFIED GROUP [id number] PUNCTURE 09-09-2016 [facility] WOUND W/O PHYSICIANS FB RIGHT GROUP FOOT INITIAL ENCNTR I10 ESSENTIAL 04-18-2016 [facility] P N R0789 OTHER CHEST 04-18-2016 [facility] R079 CHEST PAIN 04-18-2016 [facility] UNSPECIFIED PHYSICIANS, PLLC [id number] ENCOUNTER 04-01-2016 [facility] GENERAL RTN W/O ABNORMAL FIND Z0100 ENCOUNTER 03-13-2016 ISABELLE EXAM EYES & GRE VISION W/O ABNORMAL FIND J320 CHRONIC 12-18-2015 [facility] MAXILLARY PHYSICIANS SINUSITIS GROUP J342 DEVIATED 12-18-2015 [facility] NASAL PHYSICIANS SEPTUM GROUP J322 CHRONIC 12-04-2015 [facility] ETHMOIDAL PHYSICIANS SINUSITIS GROUP H547 UNSPECIFIED 11-18-2015 [place] [facility]ISUAL [facility] LOSS [facility] J324 CHRONIC 11-18-2015 [facility] PANSINUSITI PHYSICIANS, S PLLC J3489 OTHER 11-18-2015 [place] SPECIFIED MEDICAL DISORDERS IMAGING ASS NOSE AND NASAL SINUSES R05 COUGH 11-18-2015 [facility] R51 HEADACHE 11-18-2015 [facility] Z880 ALLERGY 11-18-2015 [facility] STATUS TO PHYSICIANS, PENICILLIN PLLC Z881 ALLERGY 11-18-2015 [facility] STATUS TO PHYSICIANS, OTHER PLLC ANTIBIOTIC AGENTS STATUS Z887 ALLERGY 11-18-2015 [facility] STATUS TO PHYSICIANS, SERUM AND PLLC VACCINE STATUS Z888 ALLERGY 11-18-2015 [facility] STATUS OTH PHYSICIANS, RX MEDS & PLLC BIOLOG SUBSTANC STS [id number] INSECT BITE 09-28-2015 [facility] LOWER BACK PHYSICIANS, & PELVIS PLLC INITIAL ENC [id number] INSECT BITE 09-28-2015 [facility] LEFT HIP PHYSICIANS, INITIAL PLLC ENCOUNTER [id number] TOXIC 09-28-2015 [facility] EFFECT UNS [facility] SPIDER INC VENOM ACC INITIAL ENC R000 TACHYCARDIA 02-23-2015 [facility] PHYSICIANS, UNSPECIFIED PLLC R0602 SHORTNESS 02-23-2015 [place] [facility] 4019 UNSPECIFIED 02-03-2015 [facility] P N 53555 ASTHMA, 02-03-2015 [facility]US 7231 CERVICALGIA 02-03-2015 [facility] 7851 PALPITATION 02-03-2015 [facility] S PHYSICIANS, PLLC 09022 CHEST PAIN 02-03-2015 [facility] UNSPECIFIED PHYSICIANS, PLLC 90403 OTHER 01-02-2015 [facility] MALAISE AND PHYSICIANS FATIGUE GROUP 7831 ABNORMAL 01-02-2015 [facility] WEIGHT GAIN PHYSICIANS GROUP 7862 COUGH 12-04-2014 [facility] 4659 ACUTE URIS 12-03-2014 [facility] OF PHYSICIANS, UNSPECIFIED PLLC SITE 03662 UNSPECIFIED 10-24-2014 [facility] VIRAL PHYSICIANS INFECTION GROUP IN CCE & UNS SITE 4738 OTHER 10-24-2014 [place] CHRONIC [facility]ICAL SINUSITIS [facility] 4739 UNSPECIFIED 10-24-2014 [facility] SINUSITIS PHYSICIANS GROUP 7840 HEADACHE 10-24-2014 [facility] 4618 OTHER ACUTE 10-23-2014 [facility] SINUSITIS [facility] INC 97738 OTHER 10-23-2014 [facility] CONVULSIONS [facility] INC 4610 ACUTE 10-14-2014 [facility] MAXILLARY [facility] SINUSITIS INC 4730 CHRONIC 10-14-2014 [facility] MAXILLARY PHYSICIANS, SINUSITIS [facility] 37494 FEVER 10-14-2014 [place] UNSPECIFIED [facility] 7869 OTH 10-14-2014 [place] SYMPTOMS MEDICAL INVOLVING IMAGING ASS RESPIRATORY SYSTEM&CHES T 9115 TRUNK 10-14-2014 [facility] INSECT BITE [facility] INC NONVENOMOUS INFECTED 6253 DYSMENORRHE 10-13-2014 [facility] A PHYSICIANS GROUP 6262 EXCESSIVE 10-13-2014 [facility] OR FREQUENT PHYSICIANS GROUP MENSTRUATIO N 6264 IRREGULAR 10-13-2014 [facility] MENSTRUAL PHYSICIANS CYCLE GROUP 06275 ABDOMINAL 09-06-2014 [place] PAIN RIGHT MEDICAL UPPER IMAGING ASS QUADRANT 7821 RASH AND 08-24-2014 [facility] OTHER [facility] NONSPECIFIC INC SKIN ERUPTION 12894 ABDOMINAL 08-24-2014 [facility] PAIN, [facility] UNSPECIFIED INC SITE 26806 ACUTE 05-07-2014 [facility] SEROUS PHYSICIANS OTITIS GROUP MEDIA 4619 ACUTE 05-07-2014 [facility] SINUSITIS, PHYSICIANS UNSPECIFIED GROUP 18096 HEMOPTYSIS 03-15-2014 [facility] UNSPECIFIED N EMERGENCY PHYSI [...] OF [facility] ALLERGY TO INC PEANUTS 04070 PAINFUL 03-09-2014 [facility] RESPIRATION N EMERGENCY PHYSI [...] LE 68 09 10 10 10 00 AL Ac VO 38 -1 -1 .0 00 L- ti FL 20 7- 3- 00 07 MA ve OX 01 20 20 51 RT AC 60 17 17 00 IN 1 97 PH AR 50 MA 0 CY MG #5 TA 91 BL ET ME 59 09 10 21 6 00 AL Ac TH 74 -1 -1 .0 00 L- ti YL 60 7- 3- 00 07 MA ve TN 00 20 20 51 RT ED 10 17 17 00 NI 3 98 PH SO AR LO MA NE CY 4 #5 MG 91 DO SE PK AZ 50 09 10 6. 5 00 AL Ac IT 11 -1 -1 00 00 L- ti HR 10 2- 3- 0 07 MA ve OM 78 20 20 50 RT YC 75 17 17 92 IN 1 69 PH AR 25 MA 0 CY MG #5 TA 91 BL ET MO 31 05 06 30 30 00 AL Ac NT 72 -2 -2 .0 00 L- ti EL 20 4- 3- 00 07 MA ve UK 72 20 20 48 RT 61 17 17 98 T 0 22 PH SO AR D MA 10 CY MG #5 91 TA BL ET ES 68 05 06 30 30 00 AL Ac CI 64 -2 -2 .0 00 L- ti TA 50 3- 3- 00 07 MA ve LO 52 20 20 48 RT TN 05 17 17 96 AM 4 28 PH AR 20 MA CY MG #5 TA 91 BL ET CI 00 05 06 10 5 00 WA Ac TN 17 -0 -0 .0 00 L- ti OF 25 1- 2- 00 07 MA ve LO 31 20 20 48 RT XA 26 17 17 53 CI 0 81 PH N AR HC MA L CY 50 0 #5 MG 91 TA B ON 57 05 06 24 8 00 AL Ac DA 23 -0 -0 .0 00 [...] ve LO 51 20 20 46 RT TN 95 17 17 11 AM 4 74 PH AR 10 MA CY MG #5 TA 91 BL ET ME 59 03 03 21 6 00 WA Ac TH 74 -0 -3 .0 00 L- ti YL 60 9- 1- 00 07 MA ve TN 00 20 20 47 RT ED 10 [...] ve LO 37 20 20 46 RT TN 40 17 17 11 AM 1 74 PH AR 10 MA CY MG #5 TA 91 BL ET ES 68 12 01 30 30 00 WA Ac CI 64 -2 -2 .0 00 L- ti TA 50 8- 0- 00 07 MA ve LO 44 20 20 46 RT TN 87 16 17 11 AM 0 74 [...] blood 13:40 platele t mean volume jaren [place] % = 3.5 % 1.7-9.3 complet 017 [...] SQUARE METERS Comment: If this patient is -Northern Irish, then multiply the Comment: result by 1.210. [...] = 43 25-115 complet 017 U/L ed ser/misty 13:40 s Procedures Procedure DOS Code Location Performer Comment 4VHPV 15947 [facility] STONE VACCINE 3 7 PHYSICIAN DOSE S GROUP SCHEDULE FOR IM USE IM ADM 88685 [facility] STONE PRQ ID 7 PHYSICIAN SUBQ/IM S GROUP NJXS 1 VACCINE ECG 37561 RE[facility] CHAHAL ROUTINE 6 [facility] W/LEAST P 12 LDS I&R ONLY RADIOLOGI 75908 [place] COTTER ALL C EXAM 6 MEDICAL CHEST 2 IMAGING VIEWS ASS FRONTAL&L ATERAL CYTP C/V 55158 [facility], PICKLESIM AUTO THIN 6 LLC ER JR LYR PREPJ SCR MNL RESCR PHYS URNLS DIP 89660 [facility] L[facility] 6 PHYSICIAN MAZIN STICK/TAB S GROUP LET RGNT NON-AUTO W/O MICRSCP IM ADM 12455 [facility] STONE ROSLYN PRQ ID 6 PHYSICIAN SUBQ/IM S GROUP NJXS 1 VACCINE 4VHPV 15290 [facility] STONE ROSLYN VACCINE 3 6 PHYSICIAN DOSE S GROUP SCHEDULE FOR IM USE OPHTH 35648 [facility] 6 GRE GRE XM&EVAL COMPRHNSV ESTAB PT 1/> DETERMINA 78694 [facility] TION [address] [place] [address] [place] KRISTOFER HEAD/BRAI 6 MEDICAL [place] N W/O IMAGING CONTRAST ASS MATERIAL RADIOLOGI 98174 [place] KRISTOFER C EXAM 6 MEDICAL [place] CHEST 2 IMAGING VIEWS ASS FRONTAL&[place] [address] [place] KRISTOFER MAXILLOFA 6 MEDICAL [place] CIAL W/[place] [address] [facility] TROPONIN 6 [facility] QUANTITAT INC INC ALEJANDRO BLOOD 90766 [facility] COUNT 6 [facility] COMPLETE INC INC AUTO&AUTO DIFRNTL WBC COMPREHEN 53856 [facility] SIVE 6 [facility] METABOLIC INC INC PANEL CREATINE 00944 [facility] KINASE MB 6 [facility] FRACTION INC INC ONLY CREATINE 35773 [facility] W[facility] KINASE 6 [facility] TOTAL INC INC ECG 59898 [facility] ROUTINE 6 [facility] ECG INC INC W/LEAST 12 LDS TRCG ONLY W/O I&R RADIOLOGI 16395 [place] COTTER ALL C 5 MEDICAL EXAMINATI IMAGING ON CHEST ASS SINGLE VIEW FRONTAL CT THORAX 18519 [facility] ALL 5 MEDICAL W/CONTRAS IMAGING T ASS MATERIAL XTRNL ECG 01429 [facility] WELCH & 48 HR 5 [facility] RECORDING INC INC BLOOD 64255 [facility] COUNT 5 [facility] COMPLETE INC INC AUTO&[place] [address] [facility]EL[facility] TROPONIN 5 [facility] QUANTITAT INC INC ALEJANDRO CREATINE 52049 [facility] KINASE 5 [facility] TOTAL INC INC EXTERNAL 53900 [facility] WELCH ECG 5 [facility] SCANNING INC INC ANALYSIS REPORT BASIC 95123 [facility]EL[facility] METABOLIC 5 [facility] PANEL INC INC CALCIUM TOTAL CREATINE 68303 RE[facility] WELCH KINASE MB 5 [facility] FRACTION INC INC ONLY XTRNL ECG 25653 RE[facility] CHAHAL 5 [facility] S RHYTHM P W/I&R UP TO 48 HRS ECG 98131 RE[facility] WELCH ROUTINE 5 [facility] ECG INC INC W/LEAST 12 LDS TRCG ONLY W/O I&R RADIOLOGI 10838 [facility] WELCH C EXAM 5 [facility] CHEST 2 INC INC VIEWS FRONTAL&L ATERAL ECG 09865 RE[facility] CHAHAL ROUTINE 5 [facility] W/LEAST P 12 LDS I&R ONLY MICROSOMA 45384 [facility] WELCH L 5 [facility] ANTIBODIE INC INC S EACH COLLECTIO 65273 [facility] DANITA N VENOUS 5 PHYSICIAN MINN[place] B[place] [address] RE[facility] WELCH FREE 5 [facility] [place] [address] RE[facility] WEL[facility] THYROID 5 [facility] STIMULATI INC INC NG HORMONE TSH COMPREHEN 97562 [facility] W[facility] SIVE 5 [facility] METABOLIC INC INC PANEL RADIOLOGI 33154 RE[facility] WELCH C EXAM 5 [facility] CHEST 2 INC INC VIEWS FRONTAL&L ATERAL URNLS DIP 16867 [facility] WELCH 5 [facility] STICK/TAB INC INC LET REAGENT AUTO MICROSCOP Y URNLS DIP 85343 [facility] WELCH 5 [facility] STICK/TAB INC INC LET REAGENT AUTO MICROSCOP Y BLOOD 51470 [facility] COUNT 5 [facility] COMPLETE INC INC AUTO&[place] [address] [facility] INFUSION 5 [facility] THERAPY/P INC INC ROPHYLAXI S /DX 1ST TO 1 HR URINE 02700 [facility] WELCH 5 [facility] TEST INC INC VISUAL COLOR CMPRSN METHS COMPREHEN 05141 [facility]EL[facility] SIVE 5 [facility] [place] [address] RE[facility] WEL[facility] INFUSION 5 [facility] THERAPY INC INC PROPHYLAX IS/DX EA HOUR THERAPEUT 86616 [facility] WEL[facility] IC 5 [facility] INJECTION [place] [address] RE[facility]EL[facility] HEAD/[facility]RAI 5 [facility] N W/O INC INC CONTRAST MATERIAL THERAPEUT 73808 [facility] WELCH IC 5 [facility] PROPHYLAC INC INC TIC/DX INJECTION SUBQ/IM URINE 28666 [facility] WELCH 5 [facility] TEST INC INC VISUAL COLOR CMPRSN METHS CULTURE 84293 [facility] WELCH BACTERIAL 5 [facility] BLOOD INC INC AEROBIC W/ID ISOLATES BLOOD 78326 [facility] WEL[facility] COUNT 5 [facility] COMPLETE INC INC AUTO&AUTO DIFRNTL WBC RADEX 39510 [facility] WEL[facility] SINUSES 5 [facility] PARANASAL INC INC COMPL MINIMUM 3 VIEWS RADIOLOGI 20945 [facility] C EXAM 5 [facility] CHEST 2 INC INC VIEWS FRONTAL&[place] [address] RE[facility]ELCH INFUSION 5 [facility] THERAPY/P INC INC ROPHYLAXI S /DX 1ST TO 1 HR URINE 66335 RE[facility] WELCH 5 [facility] TEST INC INC VISUAL COLOR CMPRSN METHS BLOOD 43517 [facility] WELCH COUNT 5 [facility] COMPLETE INC INC AUTO&AUTO DIFRNTL WBC URNLS DIP 81925 [facility] LAYON 5 [facility] STICK/TAB INC [place] [address] [facility] ABDOMEN & 5 MEDICAL [place] PELVIS IMAGING W/[place] [address] RE[facility] WELCH LIPASE 5 [facility] INC INC COMPREHEN 97244 RE[facility]ELCH SIVE 5 [facility] [place] [address] RE[facility]ELCH AMYLASE 5 [facility] INC INC COMPREHEN 78235 [facility] WELCH SIVE 5 [facility] METABOLIC INC INC PANEL COLLECTIO 56279 [facility] N VENOUS 5 PHYSICIAN MINNIE BLOOD S GROUP VENIPUNCT URE URNLS DIP 58415 [facility] DANITA 5 PHYSICIAN MINNIE STICK/TAB S GROUP LET RGNT NON-AUTO W/O MICRSCP BLOOD 95024 [facility] WELCH COUNT 5 [facility] COMPLETE INC INC AUTO&AUTO DIFRNTL WBC URNLS DIP 62461 [facility] WELCH 5 [facility] STICK/TAB INC INC LET REAGENT AUTO MICROSCOP Y IAADIADOO 72386 [facility] FRYMAN 4 PHYSICIAN EUG INFLUENZA S GROUP CT THORAX 32131 RE[facility] WELCH W/O 4 [facility] CONTRAST INC INC MATERIAL BLOOD 55985 [facility] WELCH COUNT 4 [facility] COMPLETE INC INC AUTO&AUTO DIFRNTL WBC THER 97438 RE[facility] WELCH PROPH/DX 4 [facility] NJX IV INC INC PUSH SINGLE/1S T SBST/DRUG COMPREHEN 88119 RE[facility] WELCH SIVE 4 [facility] METABOLIC INC INC PANEL FIBRIN 77628 [facility] DGRADJ 4 [facility] PRODUCTS INC INC D-DIMER QUAL/SEMI JACY IAADI 97757 [facility]EL[facility] INFLUENZA 4 [facility] B VIRUS INC INC IAADI 07236 [facility] WEL[facility] INFFLUENZ 4 [facility] A A VIRUS INC INC RADIOLOGI 94251 RE[facility] WELCH C EXAM 4 [facility] CHEST 2 INC INC VIEWS FRONTAL&L ATERAL IAADI 71036 [facility] WEL[facility] INFFLUENZ 4 [facility] A A VIRUS INC INC IAADI 20557 [facility] WEL[facility] INFLUENZA 4 [facility] B VIRUS INC INC CUL BACT 25093 [facility] WEL[facility] XCPT 4 [facility] URINE INC INC BLOOD/[place] [address] RE[facility] WEL[facility] STREPTOCO 4 [facility] CCUS INC INC GROUP A Encounters Encounter Start End Date Code Location Performer Type Date OFFICE 37955 [facility] OUTPATIEN 7 7 PHYSICIAN T VISIT 5 S GROUP MINUTES OFFICE 36353 [facility] STONE OUTPATIEN 7 7 PHYSICIAN T VISIT S GROUP 15 MINUTES EMERGENCY 67785 JO[facility] SAMAYOA DEPT 6 6 PHYSICIAN MINNIE VISIT S, PLLC HIGH SEVERITY& THREAT FUNJ PERIODIC 69141 [facility] LICONA PREVENTIV 6 6 PHYSICIAN MAZIN E MED EST S GROUP PATIENT 18-39 YRS OFFICE 66311 [facility] DORSEY OUTPATIEN 6 6 PHYSICIAN NAEEM T VISIT S GROUP 10 MINUTES OFFICE 70630 [facility] DORSEY OUTPATIEN 6 6 PHYSICIAN NAEEM T NEW 10 S GROUP MINUTES HOSPITAL RE[facility] - 6 6 [facility] OUTPATIEN INC T EMERGENCY 17314 [facility] 6 6 [facility] T VISIT MODERATE SEVERITY [facility]OSP[facility] - 6 6 [facility] OUTPATIEN INC T EMERGENCY 43995 [facility] 6 [facility] V[facility]/M INOR PROB EMERGENCY 89501 [facility] SAMAYOA DEPT 5 5 PHYSICIAN MINNIE VISIT S, [facility] HIGH SEVERITY& THREAT FUNCJ EMERGENCY 99667 [facility] 5 5 [facility] HIGH/URGE NT SEVERITY EMERGENCY 15684 JO[facility] SCHWARZEY DEPT 5 5 PHYSICIAN MINNIE VISIT S, [facility] HIGH SEVERITY& THREAT FUNJ HOSPITAL RE[facility] - 5 5 [facility] OUTPATIEN [facility] T OFFICE 29989 [facility] 5 5 PHYSICIAN MINNIE T VISIT S GROUP 15 MINUTES HOSPITAL REBEKAH - 5 5 [facility] OUTPATIEN [facility] T EMERGENCY 27199 REBEKAH 5 5 [facility] VISIT LOW/MODER SEVERITY EMERGENCY 24163 JOSE DOWD 5 5 PHYSICIAN Hannah [facility] S, [facility] T VISIT HIGH/URGE NT SEVERITY HOSPITAL REBEKAH - 5 5 [facility] OUTPATIEN [facility] T OFFICE 49801 [facility] 5 5 PHYSICIAN MINNIE T VISIT S GROUP 15 MINUTES HOSPITAL REBEKAH - 5 5 [facility] OUTPATIEN [facility] T EMERGENCY 00570 JOSE BLOCK [facility] DEPT 5 5 PHYSICIAN VISIT S, [facility] HIGH SEVERITY& THREAT [facility] EMERGENCY 26173 REBEKAH 5 5 [facility] HIGH/URGE NT SEVERITY EMERGENCY 51069 REBEKAH 5 5 [facility] LOW/MODER SEVERITY EMERGENCY 56012 JOES VASQUEZ 5 5 PHYSICIAN [facility] T VISIT HIGH/URGE NT SEVERITY HOSPITAL REBEKAH - 5 5 [facility] T EMERGENCY 87325 REBEKAH 5 5 [facility] DE[facility] T VISIT LOW/MODER SEVERITY OFFICE 34580 [facility] OUTPATIEN 5 5 PHYSICIAN MAZIN T VISIT S GROUP 15 MINUTES EMERGENCY 84071 REBEKAH 5 5 [facility] T VISIT P MODERATE SEVERITY HOSPITAL REBEKAH - 5 5 [facility] OUTPATIEN INC T HOSPITAL REBEKAH [facility] 5 5 [facility] OUT[facility]EN [facility] T OFFICE 45429 [facility] DANITA OUTPATIEN 5 5 PHYSICIAN MINNIE T VISIT S GROUP 25 MINUTES EMERGENCY 02965 REBEKAH 5 5 [facility] T VISIT [facility]OW/MODER SEVERITY HOSPITAL REBEKAH - 5 5 [facility] OUT[facility]IEN [facility] T OFFICE 76471 [facility] EDYTA OUTPATIEN 4 4 PHYSICIAN EUG T VISIT S GROUP 15 MINUTES EMERGENCY 96025 REBEKAH 4 4 [facility] DEPARTMEN INC T VISIT HIGH/URGE NT SEVERITY EMERGENCY 97967 [facility] DEPT 4 4 SELWYN MINNIE VISIT EMERGENCY HIGH PHYSI SEVERITY& THREAT [facility] REBEKAH - 4 4 [facility] OUTPATIEN INC T EMERGENCY 82930 REBEKAH 4 4 [facility] DEPARTMEN INC T VISIT LOW/MODER SEVERITY HOSPITAL REBEKAH - 4 4 [facility] OUT[facility] T EMERGENCY 36177 [facility] 4 4 SELWYN [place] DEPARTMEN EMERGENCY T VISIT PHYSI MODERATE SEVERITY EMERGENCY 86420 [facility] 4 4 SEL[place]YN [place] DEPARTMEN EMERGENCY T VISIT PHYSI HIGH/URGE NT SEVERITY EMERGENCY 48223 RE[facility]KAH 4 4 [facility] DEPART[facility] INC T VISIT LOW/MODER SEVERITY HOSPITAL REBEKAH - 4 4 [facility] NICK Stallings (ER) 3 13:14 3 13:48 [facility] Theron Paul Emergency NICK Stallings (ER) 3 16:48 3 18:06 [facility] Theron Paul
--- OUTSIDE RECORDS SUMMARY | 2017-02-27 17:19 | External Medical Summary Rpt | CCD ---
Author Author , SVITLANA Organization SVITLANA Address Unknown Phone [email or web address] Immunization Name Date Rout CVX Reac Dose Comm Prov Is Faci e tion ent ider Refu lity Give sed n HPV4 06-0 62 0.5 Hist GSHA No GSHA 2-20 mL oric NE NE (Gar 17 al dasi Info l) rmat ion - Sour ce Unsp ecif ied DT, 07-1 28 999 Hist H201 No H201 ped 7-19 oric 98 al Info rmat ion - Sour ce Unsp ecif ied MMR 07-1 3 999 Hist H201 No H201 7-19 oric 98 al Info rmat ion - Sour ce Unsp ecif ied Vari 03-0 21 999 Hist H201 No H201 cell 9-19 oric a 98 al Info rmat ion - Sour ce Unsp ecif ied Sammy 02-1 Intr 2 999 Hist H201 No H201 o-OP 8-19 amus oric V 98 cula al r Info rmat ion - Sour ce Unsp ecif ied
--- OUTSIDE RECORDS SUMMARY | 2017-02-27 17:19 | External Medical Summary Rpt | CCD ---
Author Author , SVITLANA SHANE Address Unknown Phone [email or web address] Care Team Providers Care Associate Professor Of History Name Role Phone FELA BETY, DOLLYSON Unavailable Unavailable BETY COTTER ALL, COTTER ALL Unavailable Unavailable LICONA MAZIN, LICONA Unavailable Unavailable MAZIN KRISTOFER KENIA, Unavailable Unavailable KRISTOFER KENIA YMWILLIAM EUG, FRYMAN Unavailable Unavailable EUG JR JESUSITA VASQUEZ, Unavailable Unavailable JR JESUSITA VASQUEZ MINNIE, DANITA Unavailable Unavailable MINNIE [facility] Un[facility] Unavailable INC, [facility] Unavailable Unavailable HOSPITAL P, [facility], Unavailable Unavailable [facility] Unavailable Unavailable [facility], [facility] DORSEY NAEEM, DORSEY Unavailable Unavailable NAEEM ISABELLE GRE, Unavailable Unavailable ISABELLE GRE ISABELLE GRE, Unavailable Unavailable ISABELLE GRE [facility], Un[facility]available [facility], [facility], [facility] ELMER ALEXANDER, Unavailable Unavailable ELMER BLOCK MOH, UMAIR MOH Unavailable Unavailable SOTINGEANU OSCAR, Unavailable Unavailable SOTINGEANU OSCAR [facility] Unavailable Unavailable [facility], [facility] STONE, STONE Unavailable Unavailable STONE ROSLYN, STONE ROSLYN Unavailable Unavailable Purpose Continuity of Care Document - 03-09-2014 through 2016 Problems Code Diagnosis DOS Provider Status Z23 ENCOUNTER 10-11-2016 [facility] FOR [facility]ANS IMMUNIZATIO GROUP N R112 NAUSEA WITH 09-09-2016 [facility] VOMITING PHYSICIANS UNSPECIFIED GROUP [id number] PUNCTURE 09-09-2016 [facility] WOUND W/O PHYSICIANS FB RIGHT GROUP FOOT INITIAL ENCNTR I10 ESSENTIAL 04-18-2016 [facility] P N R0789 OTHER CHEST 04-18-2016 [facility] R079 CHEST PAIN 04-18-2016 [facility] UNSPECIFIED PHYSICIANS, PLLC [id number] ENCOUNTER 04-01-2016 [facility] GENERAL RTN W/O ABNORMAL FIND Z0100 ENCOUNTER 03-13-2016 [facility] EXAM EYES & GRE VISION W/O ABNORMAL FIND J320 CHRONIC 12-18-2015 [facility] MAXILLARY PHYSICIANS SINUSITIS GROUP J342 DEVIATED 12-18-2015 [facility] NASAL PHYSICIANS SEPTUM GROUP J322 CHRONIC 12-04-2015 [facility] ETHMOIDAL PHYSICIANS SINUSITIS GROUP H547 UNSPECIFIED 11-18-2015 [facility] V[facility]UAL [facility] J324 CHRONIC 11-18-2015 [facility] PANSINUSITI PHYSICIANS, S PLLC J3489 OTHER 11-18-2015 [facility] SPECIFIED MEDICAL DISORDERS IMAGING ASS NOSE AND NASAL SINUSES R05 COUGH 11-18-2015 [facility] R51 HEADACHE 11-18-2015 [facility] Z880 ALLERGY 11-18-2015 [facility] STATUS TO PHYSICIANS, PENICILLIN PLLC Z881 ALLERGY 11-18-2015 [facility] STATUS TO PHYSICIANS, OTHER PLLC ANTIBIOTIC AGENTS STATUS Z887 ALLERGY 11-18-2015 [facility] STATUS TO PHYSICIANS, SERUM AND PLLC VACCINE STATUS Z888 ALLERGY 11-18-2015 [facility] STATUS OTH PHYSICIANS, RX MEDS & PLLC BIOLOG SUBSTANC STS [id number] INSECT BITE 09-28-2015 [facility] LOWER BACK PHYSICIANS, & PELVIS PLLC INITIAL ENC [id number] INSECT BITE 09-28-2015 [facility] LEFT HIP PHYSICIANS, INITIAL PLLC ENCOUNTER [id number] TOXIC 09-28-2015 [facility] EFFECT UNS [facility] SPIDER INC VENOM ACC INITIAL ENC R000 TACHYCARDIA 02-23-2015 [facility], UNSPECIFIED PLLC R0602 SHORTNESS 02-23-2015 [facility] 4019 UNSPECIFIED 02-03-[address] [facility] P N 10218 ASTHMA, 02-03-2015 [facility] P UNSPECIFIED STATUS 7231 CERVICALGIA 02-03-2015 [facility] 7851 PALPITATION 02-03-2015 [facility] S PHYSICIANS, PLLC 28339 CHEST PAIN 02-03-2015 [facility] UNSPECIFIED PHYSICIANS, PLLC 20871 OTHER 01-02-2015 [facility] MALAISE AND PHYSICIANS FATIGUE GROUP 7831 ABNORMAL 01-02-2015 [facility] WEIGHT GAIN PHYSICIANS GROUP 7862 COUGH 12-04-2014 [facility] 4659 ACUTE URIS 12-03-2014 [facility] OF PHYSICIANS, UNSPECIFIED PLLC SITE 26539 UNSPECIFIED 10-24-2014 [facility] VIRAL PHYSICIANS INFECTION GROUP IN CCE & UNS SITE 1106 OTHER 10-24-2014 [facility] CHRONIC MEDICAL SINUSITIS IMAGING ASS 4739 UNSPECIFIED 10-24-2014 [facility] SINUSITIS PHYSICIANS GROUP 7840 HEADACHE 10-24-2014 [facility] 4618 OTHER ACUTE 10-23-2014 [facility] SINUSITIS [facility] 96395 OTHER 10-23-2014 [facility] CONVULSIONS [facility] INC 4610 ACUTE 10-14-2014 [facility] MAXILLARY [facility] SINUSITIS INC 4730 CHRONIC 10-14-2014 [facility] MAXILLARY PHYSICIANS, SINUSITIS [facility] 21968 FEVER 10-14-2014 [facility] UNSPECIFIED [facility]ICAL IMAGING ASS 7869 OTH 10-14-2014 [facility] SYMPTOMS MEDICAL INVOLVING IMAGING ASS RESPIRATORY SYSTEM&CHES T 9115 TRUNK 10-14-2014 [facility] INSECT BITE [facility] INC NONVENOMOUS INFECTED 6253 DYSMENORRHE 10-13-2014 [facility] A PHYSICIANS GROUP 6262 EXCESSIVE 10-13-2014 [facility] OR FREQUENT PHYSICIANS GROUP MENSTRUATIO N 6264 IRREGULAR 10-13-2014 [facility] MENSTRUAL PHYSICIANS CYCLE GROUP 16680 ABDOMINAL 09-06-2014 [facility] PAIN RIGHT MEDICAL UPPER IMAGING ASS QUADRANT 7821 RASH AND 08-24-2014 [facility] OTHER [facility] NONSPECIFIC INC SKIN ERUPTION 26631 ABDOMINAL 08-24-2014 [facility] PAIN, [facility] UNSPECIFIED INC SITE 00282 ACUTE 05-07-2014 [facility] SEROUS PHYSICIANS OTITIS GROUP MEDIA 4619 ACUTE 05-07-2014 [facility] SINUSITIS, PHYSICIANS UNSPECIFIED GROUP 04858 HEMOPTYSIS 03-15-2014 [facility] U[facility] N [facility]ERGENCY PHYSI [...] OF [facility] ALLERGY TO INC PEANUTS 84634 PAINFUL 03-09-2014 [facility] N [facility]Y PH[facility] Medications Na ND Rx Da Fi Fi Am Da Di Ph RX Ph St me C No te ll ll ou ys ag ar # ys at rm s nt no ma ic us Or Da si cy ia de te s n re d AZ 50 09 10 6. 5 00 WA Ac IT 11 -1 -1 00 00 L- ti HR 10 2- 3- 0 07 MA ve OM 78 20 20 50 RT YC 75 17 17 92 IN 1 69 PH AR 25 MA 0 CY MG #5 TA 91 BL ET ME 59 09 10 21 6 00 WA Ac TH 74 -1 -1 .0 00 L- ti YL 60 7- 3- 00 07 MA ve GA 00 20 20 51 RT ED 10 17 17 00 NI 3 98 PH SO AR LO MA NE CY 4 #5 MG 91 DO SE PK LE 68 09 10 10 10 00 WA Ac VO 38 -1 -1 .0 00 L- ti FL 20 7- 3- 00 07 MA ve OX 01 20 20 51 RT AC 60 17 17 00 IN 1 97 PH AR 50 MA 0 CY MG #5 TA 91 BL ET MO 31 05 06 30 30 00 WA Ac NT 72 -2 -2 .0 00 L- ti EL 20 4- 3- 00 07 MA ve UK 72 20 20 48 RT 61 17 17 98 T 0 22 PH SO AR D MA 10 CY MG #5 91 TA BL ET ES 68 05 06 30 30 00 WA Ac CI 64 -2 -2 .0 00 L- ti TA 50 3- 3- 00 07 MA ve LO 52 20 20 48 RT GA 05 17 17 96 AM 4 28 PH AR 20 MA CY MG #5 TA 91 BL ET CI 00 05 06 10 5 00 WA Ac GA 17 -0 -0 .0 00 L- ti OF 25 1- 2- 00 07 MA ve LO 31 20 20 48 RT XA 26 17 17 53 CI 0 81 PH N AR HC MA L CY 50 0 #5 MG 91 TA B ON 57 05 06 24 8 00 WA Ac DA 23 -0 -0 .0 00 [...] ve LO 51 20 20 46 RT GA 95 17 17 11 AM 4 74 PH AR 10 MA CY MG #5 TA 91 BL ET ME 59 03 03 21 6 00 WA Ac TH 74 -0 -3 .0 00 L- ti YL 60 9- 1- 00 07 MA ve GA 00 20 20 47 RT ED 10 [...] ve LO 37 20 20 46 RT GA 40 17 17 11 AM 1 74 PH AR 10 MA CY MG #5 TA 91 BL ET ES 68 12 01 30 30 00 WA Ac CI 64 -2 -2 .0 00 L- ti TA 50 8- 0- 00 07 MA ve LO 44 20 20 46 RT GA 87 16 17 11 AM 0 74 PH AR 10 MA CY MG #5 TA 91 BL ET Immunization Name Date Rout CVX Reac Dose Comm Prov Is Faci e tion ent ider Refu lity Give sed n 4VHP -1 62 STON No HMH V 8-20 E PHYS VACC 17 ICIA INE NS 3 GROU DOSE P SCHE DULE FOR IM USE 4VHP 11-0 62 STON No HMH V 8-20 E PHYS VACC 16 ROSLYN ICIA INE NS 3 GROU DOSE P SCHE DULE FOR IM USE Procedures Procedure DOS Code Location Performer Comment IM ADM 83046 [facility] STONE PRQ ID 7 PHYSICIAN SUBQ/IM S GROUP NJXS 1 VACCINE 4VHPV 04354 [facility] STONE VACCINE 3 7 PHYSICIAN DOSE S GROUP SCHEDULE FOR IM USE RADIOLOGI 44746 [facility] COTTER ALL C EXAM 6 MEDICAL CHEST 2 IMAGING VIEWS ASS FRONTAL&L ATERAL ECG 34688 [facility] CHAHAL ROUTINE 6 [facility] W/LEAST P 12 LDS I&R ONLY CYTP C/V 71060 [facility], PICKLESIM AUTO THIN 6 LLC ER JR LYR PREPJ SCR MNL RESCR PHYS URNLS DIP 73758 [facility] LICONA 6 PHYSICIAN MAZIN STICK/TAB S GROUP LET RGNT NON-AUTO W/O MICRSCP IM ADM 48563 [facility] VERITO MCGOWAN PRQ ID 6 PHYSICIAN SUBQ/IM S GROUP NJXS 1 VACCINE 4VHPV 99797 [facility] VERITO [place]CG[place] VACCINE 3 6 PHYSICIAN DOSE S GROUP SCHEDULE FOR IM USE DETERMINA 64111 ISABELLE [facility] 6 GRE GRE REFRACTIV E STATE OPHTH 17512 [facility] 6 GRE GRE XM&EVAL COMPRHNSV ESTAB PT 1/> CREATINE 84378 [facility] WELCH KINASE MB 6 [facility] FRACTION INC INC ONLY ECG 75405 [facility] WEL[facility] ROUTINE 6 [facility] ECG INC INC W/LEAST 12 LDS TRCG ONLY W/O I&R COMPREHEN 31846 [facility] SIVE 6 [facility] METABOLIC INC INC PANEL CREATINE 39728 [facility] WELCH KINASE 6 [place] [address] [facility] WEL[facility] HEAD/BRAI 6 [facility] N W/[place] [address] [facility] WEL[facility] TROPONIN 6 [facility] QUANTITAT INC INC ALEJANDRO BLOOD 14430 [facility] COUNT 6 [facility] COMPLETE INC INC AUTO&[place] [address] [facility] WEL[facility] MAXILLOFA 6 [facility] CIAL W/O INC INC CONTRAST MATERIAL RADIOLOGI 75637 [facility] WELCH C EXAM 6 [facility] CHEST 2 INC INC VIEWS FRONTAL&L ATERAL RADIOLOGI 25099 [facility] COTTER ALL C 5 MEDICAL EXAMINATI IMAGING ON CHEST ASS SINGLE VIEW FRONTAL CT THORAX 12985 [facility] ALL 5 MEDICAL W/CONTRAS IMAGING T ASS MATERIAL CREATINE 24227 [facility] WELCH KINASE MB 5 [facility] FRACTION INC INC ONLY EXTERNAL 66601 [facility] WELCH ECG 5 [facility] SCANNING INC INC ANALYSIS REPORT BASIC 91124 RE[facility] WELCH METABOLIC 5 [facility] PANEL INC INC CALCIUM TOTAL BLOOD 93555 RE[facility] WELCH COUNT 5 [facility] COMPLETE INC INC AUTO&[place] [address] [facility] WELCH TROPONIN 5 [facility] QUANTITAT INC INC ALEJANDRO CREATINE 04027 [facility] WELCH KINASE 5 [facility] TOTAL INC INC XTRNL ECG 32548 RE[facility] CHAHAL 5 [facility] S RHYTHM P W/I&R UP TO 48 HRS XTRNL ECG 34388 REBE[facility] WELCH & 48 HR 5 [facility] RECORDING INC INC RADIOLOGI 99851 RE[facility]AH WELCH C EXAM 5 [facility] CHEST 2 INC INC VIEWS FRONTAL&L ATERAL ECG 39006 RE[facility] CHAHAL ROUTINE 5 [facility] W/LEAST P 12 LDS I&R ONLY ECG 14801 REBE[facility] WELCH ROUTINE 5 [facility] ECG INC INC W/LEAST 12 LDS TRCG ONLY W/O I&R MICROSOMA 92955 RE[facility] WELCH L 5 [facility] ANTIBODIE INC INC S EACH COMPREHEN 86082 [facility] WELCH SIVE 5 [facility] [place] [address] RE[facility] WELCH FREE 5 [facility] [place] [address] RE[facility] WELCH THYROID 5 [facility] STIMULATI INC INC NG HORMONE TSH COLLECTIO 14107 [facility] DANITA N VENOUS 5 PHYSICIAN MINNIE BLOOD S GROUP VENIPUNCT URE RADIOLOGI 97080 [facility] COTTER ALL C EXAM 5 MEDICAL CHEST 2 IMAGING VIEWS ASS FRONTAL&L ATERAL URNLS DIP 98866 RE[facility] WELCH 5 [facility] STICK/TAB INC INC LET REAGENT AUTO MICROSCOP Y URNLS DIP 88880 [facility] REBEKAH 5 [facility] STICK/TAB INC INC LET REAGENT AUTO MICROSCOP Y BLOOD 02784 [facility] WELCH COUNT 5 [facility] COMPLETE INC INC AUTO&[place] [address] [facility] WELCH INFUSION 5 [facility] THERAPY INC INC PROPHYLAX IS/DX EA HOUR URINE 42882 [facility] WELCH 5 [facility] TEST INC [place] [address] [facility] MINER HEAD/BRAI 5 MEDICAL KENIA N W/O IMAGING CONTRAST ASS MATERIAL COMPREHEN 96650 RE[facility] REBEKAH SIVE 5 [facility] [place] [address] [facility] WELCH INFUSION 5 [facility] THERAPY/P INC INC ROPHYLAXI S /DX 1ST TO 1 HR THERAPEUT 44297 [facility]ELCH IC 5 [facility] INJECTION INC INC IV PUSH EACH NEW DRUG THERAPEUT 34140 [facility] WELCH IC 5 [facility] PROPHYLAC INC INC TIC/DX INJECTION SUBQ/IM RADIOLOGI 34584 [facility] COTTER ALL C EXAM 5 MEDICAL CHEST 2 IMAGING VIEWS ASS FRONTAL&L ATERAL URINE 50857 [facility] WELCH 5 [facility] TEST INC INC VISUAL COLOR CMPRSN [place] BLOOD 68314 [facility] WELCH COUNT 5 [facility] COMPLETE INC INC AUTO&AUTO DIFRNTL WBC RADEX 37327 [facility] COTTER ALL SINUSES 5 MEDICAL PARANASAL IMAGING COMPL ASS MINIMUM 3 VIEWS CULTURE 20122 [facility] WELCH BACTERIAL 5 [facility] BLOOD INC [place] AEROBIC W/[place] [address] RE[facility] WELCH INFUSION 5 [facility] THERAPY/P INC INC ROPHYLAXI S /DX 1ST TO 1 HR BLOOD 65327 [facility] WELCH COUNT 5 [facility] COMPLETE INC INC AUTO&AUTO DIFRNTL WBC URNLS DIP 15671 [facility] WELCH 5 [facility] STICK/TAB INC INC [place] [address] [facility] WELCH AMYLASE 5 [facility] INC INC URINE 96387 RE[facility]AH WELCH 5 [facility] TEST INC INC [place] [address] RE[facility] WELCH LIPASE 5 [place] [address] LEIA MINER ABDOMEN & 5 MEDICAL [place] PELVIS IMAGING W/O ASS CONTRAST MATERIAL COMPREHEN 48472 [facility] WELCH SIVE 5 [facility] METABOLIC INC INC PANEL COMPREHEN 61241 [facility] WELCH SIVE 5 [facility] METABOLIC INC INC PANEL COLLECTIO 79294 [facility] N VENOUS 5 PHYSICIAN MINNIE BLOOD S GROUP VENIPUNCT URE URNLS DIP 13307 [facility] DANITA 5 PHYSICIAN MINNIE STICK/TAB S GROUP LET RGNT NON-AUTO W/O MICRSCP BLOOD 62993 RE[facility] WELCH COUNT 5 [facility] COMPLETE INC INC AUTO&AUTO DIFRNTL WBC URNLS DIP 38983 [facility] WELCH 5 [facility] STICK/TAB INC INC LET REAGENT AUTO MICROSCOP Y IAADIADOO 00258 [facility] FRYMAN 4 PHYSICIAN EUG INFLUENZA S GROUP COMPREHEN 25182 [facility] WELCH SIVE 4 [facility] METABOLIC INC INC PANEL FIBRIN 98730 RE[facility] WELCH DGRADJ 4 [facility] PRODUCTS INC INC D-DIMER QUAL/SEMI JACY THER 26915 RE[facility] WELCH PROPH/DX 4 [facility] NJX IV INC INC PUSH SINGLE/1S T SBST/DRUG BLOOD 95236 RE[facility] WELCH COUNT 4 [facility] COMPLETE INC INC AUTO&AUTO DIFRNTL WBC CT THORAX 13083 RE[facility] WELCH W/O 4 [facility] CONTRAST INC INC MATERIAL RADIOLOGI 52785 REBEKAH WELCH C EXAM 4 [facility] CHEST 2 INC INC VIEWS FRONTAL&L ATERAL IAADI 80104 RE[facility] WELCH INFFLUENZ 4 [facility] A A VIRUS INC INC IAADI 90807 [facility] WELCH INFLUENZA 4 [facility] B VIRUS INC INC IAADI 99009 [facility] WELCH INFFLUENZ 4 [facility] A A VIRUS INC INC IAADI 39945 [facility] WELCH INFLUENZA 4 [facility] [place] [address] RE[facility] WELCH STREPTOCO 4 [facility] CCUS INC INC GROUP A CUL BACT 46184 RE[facility] WELCH XCPT 4 [facility] URINE INC INC BLOOD/STO OL AEROBIC ISOL Encounters Encounter Start End Date Code Location Performer Type Date OFFICE 12569 [facility] OUTPATIEN 7 7 PHYSICIAN T VISIT 5 S GROUP MINUTES OFFICE 73300 [facility] STONE OUTPATIEN 7 7 PHYSICIAN T VISIT S GROUP 15 MINUTES EMERGENCY 58061 JO[facility] SAMAYOA DEPT 6 6 PHYSICIAN MINNIE VISIT S, PLLC HIGH SEVERITY& THREAT [facility] 32755 [facility] LICONA PREVENTIV 6 6 PHYSICIAN MAZIN E MED EST S GROUP PATIENT 18-39 YRS OFFICE 25860 [facility] DORSEY OUTPATIEN 6 6 PHYSICIAN NAEEM T VISIT S GROUP 10 MINUTES OFFICE 04571 [facility] DORSEY OUTPATIEN 6 6 PHYSICIAN NAEEM T NEW 10 S GROUP MINUTES HOSPITAL REBEKAH - 6 6 [facility] OUTPATIEN INC T EMERGENCY 81538 RE[facility] 6 6 [facility] DEPARTMEN INC T VISIT MODERATE SEVERITY EMERGENCY 02400 [facility] 6 6 [facility] DEPARTMEN INC T VISIT LIMITED/M INOR PROB HOSPITAL RE[facility] - 6 6 [facility] OUTPATIEN INC T EMERGENCY 84175 [facility] SAMAYOA DEPT 5 5 PHYSICIAN MINNIE VISIT S, PLLC HIGH SEVERITY& THREAT [facility] REBEKAH - 5 5 [facility] OUTPATIEN INC T EMERGENCY 97112 JOSE SAMAYOA DEPT 5 5 PHYSICIAN MINNIE VISIT S, [facility] HIGH SEVERITY& THREAT [facility] EMERGENC[facility] 89686 REBEKAH 5 5 [facility] DEPARTMEN INC T VISIT HIGH/URGE NT SEVERITY HOSPITAL REBEK[facility] - 5 5 [facility] OUTPATIEN INC T OFFICE 30909 [facility] DANITA OUTPATIEN 5 5 PHYSICIAN MINNIE T VISIT S GROUP 15 MINUTES EMERGENCY 74276 REBEKAH 5 5 [facility] DEPARTMEN INC T VISIT LOW/MODER SEVERITY HOSPITAL REBEKAH - 5 5 [facility] OUTPATIEN INC T EMERGENCY 77279 JOSE DOWD 5 5 PHYSICIAN Hannah [facility] S, [facility] T VISIT HIGH/URGE NT SEVERITY OFFICE 25082 [facility] DANITA [facility] 5 5 PHYSICIAN MINNIE T VISIT S GROUP 15 MINUTES EMERGENCY 29538 [facility] LOW/MODER SEVERITY EMERGENCY 30186 [facility]IS[facility] HIGH/URGE NT SEVERITY EMERGENCY 40970 JOSE BLOCK [facility] DEPT 5 5 PHYSICIAN VISIT S, [facility] HIGH SEVERITY& THREAT [facility] RE[facility] - 5 5 [facility] OUTPATIEN INC T EMERGENCY 76646 [facility]ISIT LOW/MODER SEVERITY EMERGENCY 99680 JOSE VASQUEZ 5 5 [facility]IC[facility], [facility] T VISIT HIGH/URGE NT SEVERITY HOSPITAL RE[facility] - 5 5 [facility] OUTPATIEN INC T OFFICE 92045 [facility] 5 5 PHYSICIAN MAZIN T VISIT S GROUP 15 MINUTES HOSPITAL REBEKAH - 5 5 [facility] OUTPATIEN INC T EMERGENCY 11144 REBEKAH 5 5 [facility] T VISIT P MODERATE SEVERITY HOSPITAL RE[facility] - 5 5 [facility] OUT[facility] T OFFICE [id number] [facility] DANITA OUTPATIEN 5 5 PHYSICIAN MINNIE T VISIT S GROUP 25 MINUTES HOSP[facility] - 5 5 [facility] OUT[facility] INC T EMERGENCY 90308 [facility] 5 5 [facility] DEPARTMEN INC T VISIT LOW/MODER SEVERITY OFFICE 57024 [facility] 4 4 PHYSICIAN EUG T VISIT S GROUP 15 MINUTES EMERGENCY 00857 JONNA SCHWARZEY DEPT 4 4 SELWYN [facility] VISIT EMERGENCY HIGH PHYSI SEVERITY& THREAT FUNJ EMERGENCY 01867 [facility] 4 4 [facility] DEPART[facility] T VISIT HIGH/URGE NT SEVERITY [facility]OSP[facility] - 4 4 [facility] OUT[facility] T EMERGENCY 92899 [facility] 4 4 [facility] DEPARTMEN INC T VISIT LOW/MODER SEVERITY [facility]OSPITAL [facility] - 4 4 [facility] OUTPATIEN INC T EMERGENCY 73375 [facility] DANITA 4 4 SELWYN [facility] DEPARTMEN EMERGENCY T VISIT PHYSI MODERATE SEVERITY EMERGENCY 54808 [facility] 4 4 [facility] DEPART[facility] INC T VISIT LOW/MODER SEVERITY EMERGENCY 46120 [facility] DANITA 4 4 SELWYN [facility] DEPARTMEN EMERGENCY T VISIT PHYSI HIGH/URGE NT SEVERITY [facility]OSPITAL [facility] - 4 4 [facility] OUT[facility] T
--- OUTSIDE RECORDS SUMMARY | 2017-02-27 17:19 | External Medical Summary Rpt | CCD ---
Author Author , [facility] Organization [facility] Address Unknown Phone [email or web address] Immunization Name Date Rout CVX Reac Dose [...]
--- OUTSIDE RECORDS SUMMARY | 2017-02-27 17:19 | External Medical Summary Rpt ---
Author Author [employer] Bunn, [employer] Organization [employer] Address Unknown Phone Unavailable Results Amylase [Enzymatic activity/volume] in Serum or Plasma Observa Value Referen Units Interpr Notes Date tion ce etation Range Amylase 25 - 115 U/L Normal No Feb 19 [Enzymati informati 2017 1:40 c on in PM activity/ source volume] data in Serum or Plasma Comprehensive metabolic 2000 panel in Serum or Plasma Observa Value Referen Units Interpr Notes Date tion ce etation Range Albumin/G 1.1 - 1.8 No Low No Feb 19 lobulin informati informati 2017 1:40 [Mass on in on in PM ratio] in source source Serum or data data Plasma Albumin 3.4 - 5.0 gm/dL Normal No Feb 19 [Mass/vol informati 2017 1:40 ume] in on in PM Serum or source Plasma data Alkaline 46 - 116 U/L Normal No Feb 19 phosphata informati 2017 1:40 se on in PM [Enzymati source c data activity/ volume] in Serum or Plasma Bilirubin 0.2 - 1.0 mg/dL Normal No Feb 19 .total informati 2017 1:40 [Mass/vol on in PM ume] in source Serum or data Plasma Urea 7 - 18 mg/dL Normal No Feb 19 nitrogen informati 2017 1:40 [Mass/vol on in PM ume] in source Serum or data Plasma Calcium 8.5 - mg/dL Normal No Feb 19 [Mass/vol 10.1 informati 2017 1:40 ume] in on in PM Serum or source Plasma data Chloride 98 - 107 mmoL/L Normal No Feb 19 [Moles/vo informati 2017 1:40 lume] in on in PM Serum or source Plasma data Carbon 21.0 - mmoL/L Normal No Feb 19 dioxide, 32.0 informati 2017 1:40 total on in PM [Moles/vo source lume] in data Serum or Plasma Creatinin 0.55 - mg/dL High No Feb 19 e 1.02 informati 2017 1:40 [Mass/vol on in PM ume] in source Serum or data Plasma Creatinin 50 - 200 ML/MIN Normal No Feb 11 e renal informati 2016 1:40 clearance on in PM source predicted data by Cockcroft -Gault formula Estimated 59- ML/MIN No REFERENCE Feb 19 informati RANGE: 2017 1:40 glomerula on in >60 PM r source ML/MIN/1. filtratio data 73 SQUARE n rate METERSIf (GF this patient is -A merican, then multiply theresult by 1.210. Globulin 1.3 - 3.2 gm/dL High No Feb 19 [Mass/vol informati 2016 1:40 ume] in on in PM Serum source data Glucose 74 - 106 mg/dL High No Feb 19 [Mass/vol informati 2016 1:40 ume] in on in PM Serum or source Plasma data Potassium 3.5 - 5.1 mmoL/L Low No Feb 19 inform2016 1:40 [Moles/vo on in PM lume] in source Serum or data Plasma Sodium 136 - 145 mmoL/L Normal No Feb 19 [Moles/vo informati 2016 1:40 lume] in on in PM Serum or source Plasma data Aspartate 15 - 37 U/L Normal No Feb 19 informati 2016 1:40 aminotran on in PM sferase source [Enzymati data c activity/ volume] in Serum or Plasma Alanine 12 - 78 U/L Normal No Feb 19 aminotran informati 2016 1:40 sferase on in PM [Enzymati source c data activity/ volume] in Serum or Plasma Protein 6.4 - 8.2 gm/dL Normal No Feb 19 [Mass/vol informati 2016 1:40 ume] in on in PM Serum or source Plasma data Lipase [Enzymatic activity/volume] in Serum or Plasma Observa Value Referen Units Interpr Notes Date tion ce etation Range Lipase 73 - 393 U/L Normal No Feb 19 [Enzymati informati 2016 1:40 c on in PM activity/ source volume] data in Serum or Plasma Choriogonadotropin.beta subunit [Units] in 24 hour Urine Observa Value Referen Units Interpr Notes Date tion ce etation Range Choriogon NEG No No No Feb 19 adotropin informati informati informati 2016 1:40 .beta on in on in on in PM subunit source source source [Units] data data data in 24 hour Urine CBC W Auto Differential panel in Blood Observa Value Referen Units Interpr Notes Date tion ce etation Range Basophils 0 - 0.2 K/MM3 Normal No Feb 19 informati 2016 1:40 [#/volume on in PM ] in source Blood by data Automated count Basophils 0.1 - 2.0 % Normal No Feb 19 informati 2016 1:40 leukocyte on in PM s in source Blood by data Automated count Eosinophi 0.0 - 0.4 K/mm3 Normal No Feb 19 ls informati 2016 1:40 [#/volume on in PM ] in source Blood by data Automated count Eosinophi 0.1 - % Normal No Feb 19 ls/100 12.0 informati 2016 1:40 leukocyte on in PM s in source Blood by data Automated count Granulocy 1.8 - 7.8 K/mm3 Normal No Feb 19 keyona informati 2016 1:40 [#/volume on in PM ] in source Blood by data Automated count Granulocy 37.0 - % Normal No Feb 19 keyona/100 80.0 informati 2016 1:40 leukocyte on in PM s in source Blood by data Automated count Hematocri 37.0 - % Normal No Feb 19 t [Volume 47.0 informati 2016 1:40 on in PM Fraction] source of Blood data Hemoglobi 12.2 - g/dL Normal No Feb 19 n 16.2 informati 2016 1:40 [Mass/vol on in PM ume] in source Blood data Lymphocyt 0.7 - 4.5 K/mm3 Normal No Feb 19 es informati 2016 1:40 [#/volume on in PM ] in source Unspecifi data ed specimen by Automated count Lymphocyt 10 - 50.0 % Normal No Feb 19 es informati 2016 1:40 [#/volume on in PM ] in source Unspecifi data ed specimen by Automated count Erythrocy 27 - 31.2 pg Normal No Feb 19 te mean informati 2016 1:40 corpuscul on in PM ar source hemoglobi data n [Entitic mass] Erythrocy 31.8 - g/dl Normal No Feb 19 te mean 35.4 informati 2016 1:40 corpuscul on in PM ar source hemoglobi data n concentra tion [Mass/vol ume] by Automated count Erythrocy 82.2 - fl Normal No Oct 11 te mean 97.8 informati 2016 1:40 corpuscul on in PM ar volume source [Entitic data volume] by Automated count Monocytes 0.1 - 1.0 K/mm3 Normal No Feb 11 informati 2016 1:40 [#/volume on in PM ] in source Blood by data Automated count Monocytes 1.7 - 9.3 % Normal No Feb 11 /100 informati 2017 1:40 leukocyte on in PM s in source Blood by data Automated count Platelet 7.4 - fl Normal No Feb 19 mean 10.4 informati 2016 1:40 volume on in PM [Entitic source volume] data in Blood by Automated count Platelets 142 - 424 K/mm3 Normal No Feb 19 informati 2016 1:40 [#/volume on in PM ] in source Blood data Erythrocy 4.2 - 5.4 M/mm3 Normal No Feb 11 keyona informati 2016 1:40 [#/volume on in PM ] in source Amniotic data fluid Erythrocy 11.5 - % Normal No Feb 19 te 17.5 informati 2016 1:40 distribut on in PM ion width source [Entitic data volume] by Automated count Leukocyte 4.8 - K/MM3 Normal No Feb 11 s 10.8 informati 2016 1:40 [#/volume on in PM ] in source Blood data
--- OUTSIDE RECORDS SUMMARY | 2017-02-27 17:19 | External Medical Summary Rpt | CCD ---
Author Author , SVITLANA SHANE Address Unknown Phone [email or web address] Care Team Providers Care Spreader Operator Name Role Phone FELA BETY, DOLLYSON Unavailable Unavailable BETY COTTER ALL, COTTER ALL Unavailable Unavailable LICONA MAZIN, LICONA Unavailable Unavailable MAZIN KRISTOFER KENIA, Unavailable Unavailable KRISTOFER KENIA YMWILLIAM EUG, FRYMAN Unavailable Unavailable EUG JR JESUSITA VASQUEZ, Unavailable Unavailable JR JESUSITA VASQUEZ MINNIE, DANITA Unavailable Unavailable MINNIE [facility] Unavailable Unavailable INC, [facility] Unavailable Unavailable HOSPITAL P, [facility], Unavailable Unavailable [facility] Un[facility] Un[facility], [facility] DORSEY NAEEM, DORSEY Unavailable Unavailable NAEEM ISABELLE GRE, Unavailable Unavailable ISABELLE GRE ISABELLE GRE, Unavailable Unavailable ISABELLE GRE [facility], Un[facility] Un[facility], [facility] ELMER ALEXANDER, Unavailable Unavailable ELMER BLOCK MOH, UMAIR MOH Unavailable Unavailable SOTINGEANU OSCAR, Unavailable Unavailable SOTINGEANU OSCAR [facility] Unavailable Unavailable EMERGENCY PHYSI, [facility] STONE, STONE Unavailable Unavailable STONE ROSLYN, STONE ROSLYN Unavailable Unavailable Purpose Continuity of Care Document - 03-09-2014 through 2016 Problems Code Diagnosis DOS Provider Status Z23 ENCOUNTER 10-11-2016 [facility] FOR [facility]YS[facility]ANS IMMUNIZATIO GROUP N R112 NAUSEA WITH 09-09-2016 [facility] VOMITING PHYSICIANS UNSPECIFIED GROUP [id number] PUNCTURE 09-09-2016 [facility] WOUND W/O PHYSICIANS FB RIGHT GROUP FOOT INITIAL ENCNTR I10 ESSENTIAL 04-18-2016 [facility] P N R0789 OTHER CHEST 04-18-2016 [facility] R079 CHEST PAIN 04-18-2016 [facility] UNSPECIFIED [facility], PLLC [id number] ENCOUNTER 04-01-2016 [facility], DIRECTOR [facility] GENERAL RTN W/O ABNORMAL FIND Z0100 ENCOUNTER 03-13-2016 [facility] EXAM EYES & GRE VISION W/O ABNORMAL FIND J320 CHRONIC 12-18-2015 [facility] MAXILLARY PHYSICIANS SINUSITIS GROUP J342 DEVIATED 12-18-2015 [facility] NASAL PHYSICIANS SEPTUM GROUP J322 CHRONIC 12-04-2015 [facility] ETHMOIDAL PHYSICIANS SINUSITIS GROUP H547 UNSPECIFIED 11-18-2015 [facility] J324 CHRONIC 11-18-2015 [facility] PANSINUSITI PHYSICIANS, S PLLC J3489 OTHER 11-18-2015 [facility] SPECIFIED [facility] DISORDERS [facility]ING ASS NOSE AND NASAL SINUSES R05 COUGH 11-18-2015 [facility] R51 HEADACHE 11-18-2015 [facility] Z880 ALLERGY 11-18-2015 [facility] STATUS TO PHYSICIANS, PENICILLIN PLLC Z881 ALLERGY 11-18-2015 [facility] STATUS TO PHYSICIANS, OTHER PLLC ANTIBIOTIC AGENTS STATUS Z887 ALLERGY 11-18-2015 [facility] STATUS TO PHYSICIANS, SERUM AND PLLC VACCINE STATUS Z888 ALLERGY 11-18-2015 [facility] STATUS OTH PHYSICIANS, RX MEDS & PLLC BIOLOG SUBSTANC STS [id number] INSECT BITE 09-28-2015 [facility] LOWER BACK PHYSICIANS, & PELVIS PLLC INITIAL ENC [id number] INSECT BITE 09-28-2015 [facility] LEFT HIP PHYSICIANS, INITIAL PLLC ENCOUNTER [id number] TOXIC 09-28-2015 [facility] EFFECT UNS [facility] SPIDER INC VENOM ACC INITIAL ENC R000 TACHYCARDIA 02-23-2015 [facility], UNSPECIFIED PLLC R0602 SHORTNESS 02-23-2015 [facility] 4019 UNSPECIFIED 02-03-2015 [facility] P N 92715 ASTHMA, 02-03-2015 [facility] P UNSPECIFIED STATUS 7231 CERVICALGIA 02-03-2015 [facility] 7851 PALPITATION 02-03-2015 [facility] S PHYSICIANS, PLLC 27765 CHEST PAIN 02-03-2015 [facility] UNSPECIFIED PHYSICIANS, PLLC 95191 OTHER 01-02-2015 [facility] MALAISE AND PHYSICIANS FATIGUE GROUP 7831 ABNORMAL 01-02-2015 [facility] WEIGHT GAIN PHYSICIANS GROUP 7862 COUGH 12-04-2014 [facility] 4659 ACUTE URIS 12-03-2014 [facility] OF PHYSICIANS, UNSPECIFIED PLLC SITE 93893 UNSPECIFIED 10-24-2014 [facility] VIRAL PHYSICIANS INFECTION GROUP IN CCE & UNS SITE 8947 OTHER 10-24-2014 [facility] CHRONIC [facility] SINUSITIS [facility] ASS 4739 UNSPECIFIED 10-24-2014 [facility] SINUSITIS PHYSICIANS GROUP 7840 HEADACHE 10-24-2014 [facility] 4618 OTHER ACUTE 10-23-2014 [facility] SINUSITIS [facility] INC 61370 OTHER 10-23-2014 [facility] CONVULSIONS [facility] INC 4610 ACUTE 10-14-2014 [facility] MAXILLARY [facility] SINUSITIS INC 4730 CHRONIC 10-14-2014 [facility] MAXILLARY PHYSICIANS, [facility]ITIS [facility] 44398 FEVER 10-14-2014 [facility] UNSPEC[facility] 7869 OTH 10-14-2014 [facility] SYMPTOMS MEDICAL INVOLVING IMAGING ASS RESPIRATORY SYSTEM&CHES T 9115 TRUNK 10-14-2014 [facility] INSECT BITE [facility] INC NONVENOMOUS INFECTED 6253 DYSMENORRHE 10-13-2014 [facility] A PHYSICIANS GROUP 6262 EXCESSIVE 10-13-2014 [facility] OR FREQUENT PHYSICIANS GROUP MENSTRUATIO N 6264 IRREGULAR 10-13-2014 [facility] MENSTRUAL PHYSICIANS CYCLE GROUP 94182 ABDOMINAL 09-06-2014 [facility] PAIN RIGHT MEDICAL UPPER IMAGING ASS QUADRANT 7821 RASH AND 08-24-2014 [facility] OTHER [facility] NONSPECIFIC INC SKIN ERUPTION 74160 ABDOMINAL 08-24-2014 [facility] PAIN, [facility] UNSPECIFIED INC SITE 56989 ACUTE 05-07-2014 [facility] SEROUS PHYSICIANS OTITIS GROUP MEDIA 4619 ACUTE 05-07-2014 [facility] SINUSITIS, PHYSICIANS UNSPECIFIED GROUP 64453 HEMOPTYSIS 03-15-2014 [facility] UNSPEC[facility] N EMERGENCY PHYSI [...] OF [facility] ALLERGY TO INC PEANUTS 39818 PAINFUL 03-09-2014 [facility] RESPIRATION N EMERGENCY PHYSI [...] 60 7- 3- 00 07 MA ve IL 00 20 20 51 RT ED 10 [...] ve LO 52 20 20 48 RT IL 05 17 17 96 AM 4 28 PH AR 20 MA CY MG #5 TA 91 BL ET CI 00 05 06 10 5 00 WA Ac IL 17 -0 -0 .0 00 L- ti [...] ve LO 51 20 20 46 RT IL 95 17 17 11 AM 4 74 PH AR 10 MA CY MG #5 TA 91 BL ET ME 59 03 03 21 6 00 WA Ac TH 74 -0 -3 .0 00 L- ti YL 60 9- 1- 00 07 MA ve IL 00 20 20 47 RT ED 10 [...] ve LO 37 20 20 46 RT IL 40 17 17 11 AM 1 74 PH AR 10 MA CY MG #5 TA 91 BL ET ES 68 12 01 30 30 00 WA Ac CI 64 -2 -2 .0 00 L- ti TA 50 8- 0- 00 07 MA ve LO 44 20 20 46 RT IL 87 16 17 11 AM 0 74 [...] DOS Code Location Performer Comment IM ADM 82835 [facility] STONE PRQ ID 7 PHYSICIAN SUBQ/IM S GROUP NJXS 1 VACCINE 4VHPV 17576 [facility] STONE VACCINE 3 7 PHYSICIAN DOSE S GROUP SCHEDULE FOR IM USE RADIOLOGI 40996 [facility] COTTER [facility] C EXAM 6 MEDICAL CHEST 2 IMAGING VIEWS ASS FRONTAL&L ATERAL ECG 10021 [facility] CHAHAL ROUTINE 6 [facility] W/LEAST P 12 LDS I&R ONLY CYTP C/V 06973 [facility], PICKLESIM AUTO THIN 6 LLC ER JR LYR PREPJ SCR MNL RESCR PHYS URNLS DIP 38456 [facility] LICONA 6 PHYSICIAN MAZIN STICK/TAB S GROUP LET RGNT NON-AUTO W/O MICRSCP IM ADM 51670 [facility] VERITO MCGOWAN PRQ ID 6 PHYSICIAN SUBQ/IM S GROUP NJXS 1 VACCINE 4VHPV 46566 [facility] VERITO [place] VACCINE 3 6 PHYSICIAN DOSE S GROUP SCHEDULE FOR IM USE DETERMINA 18187 IS[facility]ELLE [facility] 6 GRE GRE REFRACTIV E STATE OPHTH 71152 [facility] 6 GRE GRE XM&EVAL COMPRHNSV ESTAB PT 1/> CREATINE 47403 [facility] WELCH KINASE MB 6 [facility] FRACTION INC INC ONLY ECG 35018 [facility] ROUTINE 6 [facility] ECG INC INC W/LEAST 12 LDS TRCG ONLY W/O I&R COMPREHEN 76743 [facility] WEL[facility] SIVE 6 [facility] METABOLIC INC INC PANEL CREATINE 07603 [facility] WELCH KINASE 6 [place] [address] [facility] WELCH HEAD/BRAI 6 [facility] N W/[place] [address] [facility] WEL[facility] TROPONIN 6 [facility] QUANTITAT INC INC ALEJANDRO BLOOD 53407 [facility] COUNT 6 [facility] COMPLETE INC INC AUTO&[place] [address] [facility] W[facility] MAXILLOFA 6 [facility] CIAL W/O INC INC CONTRAST MATERIAL RADIOLOGI 60970 [facility] WEL[facility] C EXAM 6 [facility] CHEST 2 INC INC VIEWS FRONTAL&L ATERAL RADIOLOGI 26402 [facility] C 5 MEDICAL EXAMINATI IMAGING ON CHEST ASS SINGLE VIEW FRONTAL CT THORAX 34504 [facility] ALL 5 MEDICAL W/CONTRAS IMAGING T ASS MATERIAL CREATINE 09081 [facility] WELCH KINASE MB 5 [facility] FRACTION INC INC ONLY EXTERNAL 52988 [facility] WELCH ECG 5 [facility] SCANNING INC INC ANALYSIS REPORT BASIC 92622 [facility] WELCH METABOLIC 5 [facility] PANEL INC INC CALCIUM TOTAL BLOOD 25453 [facility] WELCH COUNT 5 [facility] COMPLETE INC INC AUTO&[place] [address] RE[facility] WELCH TROPONIN 5 [facility] QUANTITAT INC INC ALEJANDRO CREATINE 86955 RE[facility] WELCH KINASE 5 [facility] TOTAL INC INC XTRNL ECG 87273 [facility] CH[facility]AL [facility] S RHYTHM P W/I&R UP TO 48 HRS XTRNL ECG 30196 RE[facility] WELCH & 48 HR 5 [facility] RECORDING INC INC RADIOLOGI 20908 RE[facility] WELCH C EXAM 5 [facility] CHEST 2 INC INC VIEWS FRONTAL&L ATERAL ECG 99591 [facility] CHAHAL ROUTINE 5 [facility] W/LEAST P 12 LDS I&R ONLY ECG 00696 [facility] WELCH ROUTINE 5 [facility] ECG INC INC W/LEAST 12 LDS TRCG ONLY W/O I&R MICROSOMA 25237 [facility] WELCH L 5 [facility] ANTIBODIE INC INC S EACH COMPREHEN 57109 [facility] WELCH SIVE 5 [facility] [address] RE[facility] WECLH FREE 5 [facility] [place] [address] REBE[facility] WELCH THYROID 5 [facility] STIMULATI INC INC NG HORMONE TSH COLLECTIO 10501 [facility] DANITA N VENOUS 5 PHYSICIAN MINNIE BLOOD S GROUP VENIPUNCT URE RADIOLOGI 42010 [facility] ALL C EXAM 5 MEDICAL CHEST 2 IMAGING VIEWS ASS FRONTAL&L ATERAL URNLS DIP 86721 [facility] WELCH 5 [facility] STICK/TAB INC INC LET REAGENT AUTO MICROSCOP Y URNLS DIP 73031 [facility] REBEKAH 5 [facility] STICK/TAB INC INC LET REAGENT AUTO MICROSCOP Y BLOOD 77463 [facility] WELCH COUNT 5 [facility] COMPLETE INC INC AUTO&[place] [address] [facility] WELCH INFUSION 5 [facility] THERAPY INC INC PROPHYLAX IS/DX EA HOUR URINE 84623 [facility] WELCH 5 [facility] TEST [place] [address] [facility] MINER HEAD/BRAI 5 MEDICAL KENIA N W/O IMAGING CONTRAST ASS MATERIAL COMPREHEN 53771 [facility]KAH SIVE 5 [facility] [place] [address] [facility] WELCH INFUSION 5 [facility] THERAPY/P INC INC ROPHYLAXI S /DX 1ST TO 1 HR THERAPEUT 70122 [facility] WELCH IC 5 [facility] INJECTION INC INC IV PUSH EACH NEW DRUG THERAPEUT 08368 [facility] WELCH IC 5 [facility] PROPHYLAC INC INC TIC/DX INJECTION SUBQ/IM RADIOLOGI 39413 [facility] [facility] C EXAM 5 MEDICAL CHEST 2 IMAGING VIEWS ASS FRONTAL&L ATERAL URINE 46767 [facility] WELCH 5 [facility] TEST INC INC VISUAL COLOR CMPRSN [place] BLOOD 66096 [facility] WELCH COUNT 5 [facility] COMPLETE INC INC AUTO&AUTO DIFRNTL WBC RADEX 62017 [facility] SINUSES 5 MEDICAL PARANASAL IMAGING COMPL ASS MINIMUM 3 VIEWS CULTURE 31339 [facility] WELCH BACTERIAL 5 [facility] BLOOD INC [place] AEROB[place] W/[place] [address] [facility] WELCH INFUSION 5 [facility] THERAPY/P INC INC ROPHYLAXI S /DX 1ST TO 1 HR BLOOD 34093 [facility] WELCH COUNT 5 [facility] COMPLETE INC INC AUTO&AUTO DIFRNTL WBC URNLS DIP 93041 [facility] WELCH 5 [facility] STICK/TAB INC INC [place] [address] [facility] WELCH AMYLASE 5 [facility] INC INC URINE 50062 [facility] WELCH 5 [facility] TEST INC INC [place] [address] RE[facility] WELCH LIPASE 5 [place] [address] LEIA MINER ABDOMEN & 5 MEDICAL [place] PELVIS IMAGING W/O ASS CONTRAST MATERIAL COMPREHEN 27616 [facility] WEL[facility] SIVE 5 [facility] METABOLIC INC INC PANEL COMPREHEN 73233 [facility] WELCH SIVE 5 [facility] METABOLIC INC INC PANEL COLLECTIO 64788 [facility] N VENOUS 5 PHYSICIAN MINNIE BLOOD S GROUP VENIPUNCT URE URNLS DIP 73518 [facility] DANITA 5 PHYSICIAN MINNIE STICK/TAB S GROUP LET RGNT NON-AUTO W/O MICRSCP BLOOD 04881 [facility] WELCH COUNT 5 [facility] COMPLETE INC INC AUTO&AUTO DIFRNTL WBC URNLS DIP 28760 [facility] WELCH 5 [facility] STICK/TAB INC INC LET REAGENT AUTO MICROSCOP Y IAADIADOO 69710 [facility] FRYMAN 4 PHYSICIAN EUG INFLUENZA S GROUP COMPREHEN 18806 [facility] WELCH SIVE 4 [facility] METABOLIC INC INC PANEL FIBRIN 74886 [facility] WELCH DGRADJ 4 [facility] PRODUCTS INC INC D-DIMER QUAL/SEMI JACY THER 19404 RE[facility] WELCH PROPH/DX 4 [facility] NJX IV INC INC PUSH SINGLE/1S T SBST/DRUG BLOOD 82314 [facility] WELCH COUNT 4 [facility] COMPLETE INC INC AUTO&AUTO DIFRNTL WBC CT THORAX 55665 [facility] WELCH W/O 4 [facility] CONTRAST INC INC MATERIAL RADIOLOGI 75632 RE[facility] WELCH C EXAM 4 [facility] CHEST 2 INC INC VIEWS FRONTAL&L ATERAL IAADI 36520 [facility] WELCH INFFLUENZ 4 [facility] A A VIRUS INC INC IAADI 37874 [facility] WELCH INFLUENZA 4 [facility] B VIRUS INC INC IAADI 97362 [facility] WEL[facility] INFFLUENZ 4 [facility] A A VIRUS INC INC IAADI 71191 [facility] WELCH INFLUENZA 4 [facility] [place] [address] RE[facility] WELCH STREPTOCO 4 [facility] CCUS INC INC GROUP A CUL BACT 46926 [facility] WELCH XCPT 4 [facility] URINE INC INC BLOOD/STO OL AEROBIC ISOL Encounters Encounter Start End Date Code Location Performer Type Date OFFICE 43424 [facility] OUTPATIEN 7 7 PHYSICIAN T VISIT 5 S GROUP MINUTES OFFICE 04406 [facility] STONE OUTPATIEN 7 7 PHYSICIAN T VISIT S GROUP 15 MINUTES EMERGENCY 61094 JOSE SAMAYOA DEPT 6 6 PHYSICIAN MINNIE VISIT S, PLLC HIGH SEVERITY& THREAT [facility] 12409 [facility] LICONA PREVENTIV 6 6 PHYSICIAN MAZIN E MED EST S GROUP PATIENT 18-39 YRS OFFICE 65804 [facility] DORSEY OUTPATIEN 6 6 PHYSICIAN NAEEM T VISIT S GROUP 10 MINUTES OFFICE 48346 [facility] DORSEY OUTPATIEN 6 6 PHYSICIAN NAEEM T NEW 10 S GROUP MINUTES HOSPITAL REBEKAH - 6 6 [facility] OUTPATIEN INC T EMERGENCY 68072 [facility] 6 6 [facility] DEPARTMEN INC T VISIT MODERATE SEVERITY EMERGENCY 64449 RBEEKAH 6 6 [facility] DEPARTMEN INC T VISIT LIMITED/M INOR PROB [facility]OSPITAL RE[facility] - 6 6 [facility] OUTPATIEN INC T EMERGENCY 66683 JO[facility] SAMAYOA DEPT 5 5 PHYSICIAN MINNIE VISIT S, PLLC HIGH SEVERITY& THREAT [facility] REBEKAH - 5 5 [facility] OUTPATIEN INC T EMERGENCY 95231 JOSE SAMAYOA DEPT 5 5 PHYSICIAN MINNIE VISIT S, [facility] HIGH SEVERITY& THREAT [facility] EMERGENCY 92603 REBE[facility] 5 5 [facility] DEPARTMEN INC T VISIT HIGH/URGE NT SEVERITY HOSPITAL REBEK[facility] - 5 5 [facility] OUTPATIEN INC T OFFICE 58778 [facility] DANITA OUTPATIEN 5 5 PHYSICIAN MINNIE T VISIT S GROUP 15 MINUTES EMERGENCY 20212 REBEKAH 5 5 [facility] DEPARTMEN INC T VISIT LOW/MODER SEVERITY HOSPITAL REBEKAH - 5 5 [facility] OUTPATIEN INC T EMERGENCY 57444 JOSE DOWD 5 5 PHYSICIAN Hannah [facility] S, [facility] T VISIT HIGH/URGE NT SEVERITY OFFICE 27285 [facility] D[facility]ITA [facility] PHYSICIAN MINNIE T VISIT S GROUP 15 MINUTES EMERGENCY 11337 [facility] LOW/MODER SEVERITY EMERGENCY 16712 [facility] HIGH/URGE NT SEVERITY EMERGENCY 57914 JOSE BLOCK JD [facility] DEPT 5 5 PHYSICIAN VISIT S, [facility] HIGH SEVERITY& THREAT FUNCJ [facility]OSPITAL REBEK[facility] - 5 5 [facility] OUTPATIEN INC T EMERGENCY 35077 [facility] LOW/MODER SEVERITY EMERGENCY 11268 [facility] VASQUEZ 5 5 [facility] T VISIT HIGH/URGE NT SEVERITY [facility]OSPITAL REBEKAH - 5 5 [facility] OUTPATIEN INC T OFFICE 40833 [facility] 5 PHYSICIAN MAZIN T VISIT S GROUP 15 MINUTES HOSPITAL REBEKAH - 5 5 [facility] OUTPATIEN INC T EMERGENCY 34424 REBEKAH 5 5 [facility] T VISIT P MODERATE SEVERITY HOSPITAL RE[facility] - 5 5 [facility] OUTPATIEN INC T OFFICE 73987 [facility] DANITA OUTPATIEN 5 5 PHYSICIAN MINNIE T VISIT S GROUP 25 MINUTES HOSPITAL REBEKAH - 5 5 [facility] OUTPATIEN INC T EMERGENCY 36255 [facility] 5 5 [facility] DEPARTMEN INC T VISIT LOW/MODER SEVERITY OFFICE 58650 [facility] 4 4 PHYSICIAN EUG T VISIT S GROUP 15 MINUTES EMERGENCY 24222 JONNA SCHWARZEY DEPT 4 4 SELWYN MINNIE VISIT EMERGENCY HIGH PHYSI SEVERITY& THREAT FUNJ EMERGENCY 92144 [facility] 4 4 [facility] DEPARTMEN INC T VISIT HIGH/URGE NT SEVERITY HOSPITAL RE[facility] - 4 4 [facility] OUTPATIEN INC T EMERGENCY 37782 [facility] 4 4 [facility] DEPARTMEN INC T VISIT LOW/MODER SEVERITY HOSPITAL RE[facility] - 4 4 [facility] OUTPATIEN INC T EMERGENCY 33271 [facility] D[facility] 4 4 SELWYN [facility] DEPARTMEN EMERGENCY T VISIT PHYSI MODERATE SEVERITY EMERGENCY 09198 REBEK[facility] 4 4 [facility] DEPARTMEN INC T VISIT LOW/MODER SEVERITY EMERGENCY 53266 [facility] DAN[facility] 4 4 SELWYN MINNIE DEPARTMEN EMERGENCY T VISIT PHYSI HIGH/URGE NT SEVERITY HOSPITAL RE[facility] - 4 4 [facility] OUTPATIEN INC T
[2017-02-27 17:37] VITALS: BP 141/97
== END ==
LOC: UTC 16:52
PROVIDERS: Nurse Practitioner
DX: N39.0 Urinary tract infection, site not specified (principal); R31.9 Hematuria, unspecified; I10 Essential (primary) hypertension; J45.909 Unspecified asthma, uncomplicated; Z79.3 Long term (current) use of hormonal contraceptives; Z79.899 Other long term (current) drug therapy